=== PATIENT | male | born 1950 | race Caucasian/White ===

== ENCOUNTER 2019-06-14 07:58 | Inpatient (IN) | payer MEDICARE, MEDICAID ==
[~2019-06-14] VITALS: Ht 170.2 cm; Wt 56.7 kg
--- NOTE | 2019-06-14 08:15 | NUR ---
PT RUPERTO, FROM [facility], "C/O MID BACK BOIL". PT AAOX4, BREATHING EVEN AND UNLABORED W/ NO ACUTE DISTRESS NOTED. IV LINE ESTABLISHED LAC 20G. BLOOD COLLECTED AND SENT TO LAB. PT CONNECTED TO THE MONITOR AND POX
[2019-06-14] MEDS ORDERED: ACETAMINOPHEN ES 500 MG TABLET ONE (08:29)
[2019-06-14] MEDS ORDERED: ACETAMINOPHEN ES 500 MG TABLET PO ONE (08:30)
[2019-06-14] MEDS ORDERED: IV NS 0.9% 1,000 ML BAG IV ONE (08:30)
[2019-06-14 08:37] LABS: BASOPHILS # (AUTO) 0.1 /CMM (0.0-0.2); BASOPHILS % (AUTO) 0.3 % (0.0-2.0); EOSINOPHILS % (AUTO) 0.1 % (0.0-6.0); HEMATOCRIT 31 % (39-51); HEMOGLOBIN 10.6 g/dL (13.5-17.5); LYMPHOCYTES # (AUTO) 1.1 /CMM (0.8-4.8); LYMPHOCYTES % (AUTO) 6.5 % (20.0-44.0); MEAN CORPUSCULAR HGB CONC 34 g/dl (31.0-36.0); MEAN CORPUSCULAR VOLUME 96 fL (80-96); NEUTROPHILS # (AUTO) 14.2 /CMM (1.8-8.9); NEUTROPHILS % (AUTO) 87.1 % (43.0-81.0); PLATELET COUNT (AUTO) 368 /CMM (150-450); RED BLOOD CELL COUNT(AUTO) 3.27 MIL/uL (4.5-6.0); WHITE BLOOD COUNT (AUTO) 16.3 K/uL (4.3-11.0)
[2019-06-14 08:40] LABS: CALCIUM, SERUM 9.4 mg/dL (8.5-10.1); CARBON DIOXIDE 24 mmol/L (21-32); CHLORIDE 108 mmol/L (98-107); CREATININE 3.2 mg/dL (0.6-1.3); GLUCOSE 157 mg/dL (74-106); POTASSIUM 3.5 mmol/L (3.5-5.1); SODIUM SERUM 145 mmol/L (136-145); UREA NITROGEN, BLOOD 57 mg/dL (7-18)
[2019-06-14 08:54] LABS: ALANINE AMINOTRANSFERASE 17 U/L (12-78); ALBUMIN 3.6 g/dL (3.4-5.0); ALKALINE PHOSPHATASE 87 U/L (46-116); ASPARTATE AMINOTRANSFERASE 17 U/L (15-37); BILIRUBIN,DIRECT 0.2 mg/dL (0.0-0.2); BILIRUBIN,TOTAL 0.6 mg/dL (0.2-1.0); TOTAL PROTEIN, SERUM 8.1 g/dL (6.4-8.2)
[2019-06-14] MEDS ORDERED: MORPHINE SULFATE INJ 4 MG/ML DISP.SYRIN ONE (09:10)
[2019-06-14] MEDS ORDERED: ONDANSETRON HCL/PF 4 MG/2 ML VIAL ONE (09:10)
[2019-06-14 09:19] LABS: APPEARANCE,URINE CLOUDY (CLEAR); BILIRUBIN,URINE MODERATE (NEGATIVE); BLOOD, URINE Large Ery/uL (NEGATIVE); COLOR,URINE RED (YELLOW); KETONES,URINE Trace (NEGATIVE); LEUKOCYTE ESTERASE ,URINE Negative (NEGATIVE); NITRITE, URINE Positive (NEGATIVE); PH,URINE 8.5 (5.0-8.0); PROTEIN,URINE >=300 mg/dl (NEGATIVE); UGLUCOSE 250 MG/DL mg/dL (NEGATIVE); UROBILINOGEN,URINE 0.2 EU/dL (0.2)
[2019-06-14 09:20] LABS: BACTERIA,URINE Few /HPF (None Seen); RBC,URINE TOO NUMEROUS TO COUN /HPF (0-2); SQUAMOUS EPITHELIAL CELL,UR None Seen /HPF (None Seen)
[2019-06-14] MEDS ORDERED: MORPHINE SULFATE INJ 2 MG/ML DISP.SYRIN IV ONE (09:30)
[2019-06-14] MEDS ORDERED: ONDANSETRON HCL/PF 4 MG/2 ML VIAL IVP ONE (09:30)
--- NOTE | 2019-06-14 09:37 | NUR ---
RECIEVED BED FROM NURSING LIBRARY MEDIA ASSISTANT, ROOM 110.
--- NOTE | 2019-06-14 09:56 | NUR ---
[facility] PAGED. WAITING FOR CALL BACK.
[2019-06-14] MEDS ORDERED: LEVOFLOXACIN 750 MG /D5W 150ML 150 ML IV ONE (10:00)
--- NOTE | 2019-06-14 10:05 | NUR ---
MD TO MD IN PROGRESS.
--- NOTE | 2019-06-14 10:27 | NUR ---
REPORT GIVEN TO NILSA HUITRON FOR ANTONIO.
--- NOTE | 2019-06-14 11:02 | NUR ---
CALLED DR. FERRER, VOICEMAIL LEFT, WAITING FOR CALL BACK.
--- NOTE | 2019-06-14 11:40 | NUR ---
TELE/RN NOTES RECEIVED PATIENT FROM ER. PATIENT WAS ACCOMPANIED BY ER NURSE. PATIENT WAS HELPED TRANSFER FROM [facility] TO THE BED. INITIAL ASSESSMENT WAS DONE. PATIENT ALERT AND ORIENTED X3. NO ACUTE DISTRESS AT THIS TIME. RESPIRATION EVEN AND UNLABORED. SKIN IS DRY WARM TO TOUCH. PATIENT NOTED WITH MIDBACK BOIL. PHOTO WAS TAKEN AND WAS PLACED IN THE CHART. PATIENT ALSO HAVE LEFT AC IV ACCESS #20G. INTACT AND PATENT. FLUSHING WELL. NO S/S OF INFECTION OR INFILTRATION. ALL NEEDS ANTICIPATED. KEPT CLEAN AND DRY. CALL LIGHT WITHIN REACHED. BED LOCKED AND IN LOWEST POSITION. WILL CONTINUE TO MONITOR CLOSELY.
[2019-06-14 12:00] VITALS: BP 126/79
[2019-06-14] MEDS ORDERED: MEROPENEM 500 MG in IV NS 0.9% 50 ML IV ONE (12:00)
[2019-06-14] MEDS ORDERED: ACETAMINOPHEN 325 MG TABLET PO PRN (12:00)
[2019-06-14] MEDS ORDERED: MAG HYDROX/AL HYDROX/SIMETH 30 ML UDC PO PRN (12:00)
[2019-06-14] MEDS ORDERED: ZOLPIDEM TARTRATE 5 MG TABLET PO PRN (12:00)
[2019-06-14] MEDS ORDERED: ONDANSETRON HCL/PF 4 MG/2 ML VIAL IVP PRN (12:00)
[2019-06-14] MEDS ORDERED: Z GUARD REMEDY 2 OZ OINT TP PRN (12:00)
[2019-06-14] MEDS ORDERED: MAGNESIUM HYDROXIDE 30 ML UDC PO PRN (12:00)
[2019-06-14] MEDS: IV NS 0.9% 1,000 ML IV PRN ×2 (12:04→23:54)
[2019-06-14] MEDS ORDERED: CYAN-51 PO (12:25)
[2019-06-14] MEDS ORDERED: BISA10SU61 RC (12:25)
[2019-06-14] MEDS ORDERED: PANT40TA2 PO (12:25)
[2019-06-14] MEDS ORDERED: TYL2T PO (12:25)
[2019-06-14] MEDS ORDERED: NA P133E RC (12:25)
[2019-06-14] MEDS ORDERED: DOCU-141 PO (12:25)
[2019-06-14] MEDS ORDERED: MAGN400O6 PO (12:25)
[2019-06-14] MEDS ORDERED: FOLI1TAB16 PO (12:25)
[2019-06-14] MEDS ORDERED: NUT.237L67 PO (12:25)
[2019-06-14 12:59] LABS: CREATININE, URINE 73.9 MG/DL (30.0-125.0); URINE TOTAL PROTEIN 285.8 mg/dL (0-11.9)
[2019-06-14] MEDS: HYDROCODONE/APAP 5/325MG 1 EACH TABLET PO PRN ×2 (15:40→21:49)
[2019-06-14 16:00] VITALS: BP_SYST 128; BP_DIAS 73; BP_DIAS 79
--- NOTE | 2019-06-14 19:16 | NUR ---
TELE/RN CLOSING NOTES PATIENT CONTINUES TO REMAIN IN STABLE CONDITION THROUGHOUT THE SHIFT. PROVIDED COMFORT AND SAFETY. PATIENT HAVE LEFT AC IV ACCESS #20G. INTACT AND PATENT. FLUSHING WELL WITH IVF RUNNING. NO S/S OF INFECTION OR INFILTRATION. ALL NEEDS ANTICIPATED. KEPT CLEAN AND DRY. CALL LIGHT WITHIN REACHED. BED LOCKED AND IN LOWEST POSITION. WILL CONTINUE TO MONITOR CLOSELY. ENDORSED TO PM NURSE FOR ANTONIO.
[2019-06-14 20:00] VITALS: BP 102/68
[2019-06-15] VITALS: BP 113/78
[2019-06-15] MEDS: MEROPENEM 500 MG in IV NS 0.9% 100 ML IV SCH ×3 (00:05→23:11)
[2019-06-15 04:00] VITALS: BP 98/66
[2019-06-15 06:44] LABS: BASOPHILS % (AUTO) 0.1 % (0.0-2.0); HEMATOCRIT 27 % (39-51); HEMOGLOBIN 8.7 g/dL (13.5-17.5); LYMPHOCYTES # (AUTO) 0.7 /CMM (0.8-4.8); LYMPHOCYTES % (AUTO) 5.9 % (20.0-44.0); MEAN CORPUSCULAR HGB CONC 33 g/dl (31.0-36.0); MEAN CORPUSCULAR VOLUME 97 fL (80-96); MONOCYTES # (AUTO) 0.6 /CMM (0.1-1.30); NEUTROPHILS # (AUTO) 10.8 /CMM (1.8-8.9); PLATELET COUNT (AUTO) 242 /CMM (150-450); RED BLOOD CELL COUNT(AUTO) 2.75 MIL/uL (4.5-6.0); WHITE BLOOD COUNT (AUTO) 12.2 K/uL (4.3-11.0)
[2019-06-15 06:54] LABS: ALBUMIN 2.4 g/dL (3.4-5.0); BILIRUBIN,TOTAL 0.4 mg/dL (0.2-1.0); CALCIUM, SERUM 8.3 mg/dL (8.5-10.1); CREATININE 3.6 mg/dL (0.6-1.3); PHOSPHORUS 3.6 mg/dL (2.5-4.9); POTASSIUM 4.2 mmol/L (3.5-5.1); TOTAL PROTEIN, SERUM 6.2 g/dL (6.4-8.2)
[2019-06-15 06:57] LABS: THYROID STIMULATING HORMONE 0.452 uIU/mL (0.358-3.74)
[2019-06-15 07:06] LABS: MAGNESIUM 1.2 mg/dL (1.8-2.4)
--- NOTE | 2019-06-15 07:10 | NUR ---
RN NOTES ALERT AND ORIENTED. NO SIGNIFICANT CHANGE OF CONDITION. FOR DISCHARGE IF ABLE TO WALK WITHOUT SYMPTOMS. KEPT CLEAN AND DRY. WILL ENDORSE TO NEXT SHIFT FOR CONTINUITY OF CARE. Addendum: 06/15/19 at 2926 by BEE LLANES RN PLEASE DISREGARD ERROR
--- NOTE | 2019-06-15 07:27 | NUR ---
RN NOTES NO SIGNIFICANT CHANGE OF CONDITION. LAB CALLED ([facility]) WITH CRITICAL LOW MAGNESIUM 1.2. ENDORSED TO NEXT SHIFT FOR CONTINUITY OF CARE.
[2019-06-15 07:59] LABS: BAND % (MANUAL) 5 % (0.0-5.0); LYMPHOCYTES % (MANUAL) 9 % (16-48); MONOCYTES % (MANUAL) 13 % (0-11.0); NEUTROPHILS % (MANUAL) 73 (42-76)
[2019-06-15 08:00] VITALS: BP 99/53
[2019-06-15] MEDS ORDERED: Magnesium 1GM/D5W 100ML PREMIX PIGGYBACK IV SCH (09:00)
[2019-06-15] MEDS: Magnesium 1GM/D5W 100ML PREMIX 100 ML IV SCH ×4 (09:39→13:17)
[2019-06-15] MEDS ORDERED: NA PHOS,M-B/NA PHOS,DI-BA 1 EA ENEMA RC PRN ×2 (10:30→16:30)
[2019-06-15] MEDS ORDERED: BISACODYL SUPP (10 MG) 10 MG/SUPP.RECT SUPP.RECT RC PRN (10:30)
--- NOTE | 2019-06-15 10:55 | NUR ---
RN NOTE PT STABLE, PT WAS COUGHING AFTER SIP OF WATER, FOOD WITHHELD, NPO FOR NOW, SWALLOW EVAL ORDERED. ALSO PT CO CONSTIPATION, MAGNESIUM LEVEL REPORTED AND GOT ORDER FOR [address] ELIZALDE CONTACTED AND OBTAINED ORDER FOR DULCOLAX AND ENEMA, REPORT GIVEN TO EMILIANO HUITRON FOR ANTONIO.
--- NOTE | 2019-06-15 11:00 | NUR ---
RN NOTE REMINDED DR ELIZALDE TO REVIEW HOME MEDS HE SAID HE WILL DO.
[2019-06-15 12:00] VITALS: BP 135/79
--- NOTE | 2019-06-15 12:49 | NUR ---
CALLED AND LEFT A MESSAGE FOR DR. AHN FOR FOLLOW UP UROLOGY CONSULT.
[2019-06-15 16:00] VITALS: BP 108/69
[2019-06-15] MEDS: NEPRO VAN 237 ML CAN PO SCH (17:00)
[2019-06-15] MEDS: DOCUSATE SODIUM 100 MG CAPSULE PO SCH (17:04)
[2019-06-15] MEDS: FOLIC ACID 1 MG TABLET PO SCH (17:04)
[2019-06-15] MEDS: CYANOCOBALAMIN 500 MCG TABLET PO SCH (17:05)
[2019-06-15] MEDS: HYDROCODONE/APAP 5/325MG 1 EACH TABLET PO PRN (17:15)
--- NOTE | 2019-06-15 17:50 | NUR ---
MICROBIOLOGY CALLED TO INFORM THAT PT IS POSITIVE FOR MRSA OF RIGHT NARES. CALLED [facility] FOR ISOLATION CART. STILL PENDING ISOLATION CART.
--- NOTE | 2019-06-15 19:23 | NUR ---
RN CLOSING NOTES PT RESTING IN BED. REPORT GIVEN TO DRILL SERGEANT RN FOR ANTONIO. BED IS LOCKED AND IN LOWEST POSITION WITH CALL LIGHT IN REACH. PT ON MONITOR CURRENTLY SR. CHEST RISE EQUAL BILATERALLY WILL ENDORSE ANTONIO TO DRILL SERGEANT RN.
[2019-06-15 20:00] VITALS: BP 96/65
[2019-06-15] MEDS: IV NS 0.9% 1,000 ML IV PRN (20:39)
[2019-06-15] MEDS: MUPIROCIN OINT 2% 22 GM TUBE SCH (20:40)
--- NOTE | 2019-06-15 22:30 | NUR ---
SENIOR PROJECT ACCOUNTANT NOTE MIDSHIFT REPORT FROM BEE HUITRON. RECEIVED PT IN STABLE CONDITION A/O X1-2, CURRENTLY RESTING IN BED. NO SIGNS OF SOB OR DISTRESS, NO INDICATIONS OF PAIN OR N/V. TELE MONITOR : SR 92. IV IN L AC IN PLACE WITH IVF INFUSING, TOLERATING WELL. ALL CURRENT NEEDS ATTENDED TO. BED LOW, LOCKED, UPPER RAILS UP, AND CALL LIGHT WITHIN REACH. WILL CONT. TO MONITOR.
[2019-06-16] VITALS (7 sets, daily range): BP systolic 105–146; BP diastolic 69–90
[2019-06-16] MEDS: IV NS 0.9% 1,000 ML IV PRN (05:17)
--- NOTE | 2019-06-16 06:14 | NUR ---
RN ORTHOPAEDICS NOTE PT IN STABLE CONDITION A/O X1-2, CURRENTLY RESTING IN BED. NO SIGNS OF SOB OR DISTRESS, NO INDICATIONS OF PAIN OR N/V. TELE MONITOR : SR 89. IV IN L AC IN PLACE WITH IVF INFUSING, TOLERATING WELL. HIDALGO IN PLACE WITH OUTPUT OF 750 ML OF CLEAR YELLOW URINE. ALL CURRENT NEEDS ATTENDED TO. PT REPOSITIONED PER PROTOCOL. BED LOW, LOCKED, UPPER RAILS UP, AND CALL LIGHT WITHIN REACH. WILL CONT. TO MONITOR AND ENDORSE TO NEXT SHIFT FOR ANTONIO.
[2019-06-16 06:42] LABS: BASOPHILS % (AUTO) 0.1 % (0.0-2.0); EOSINOPHILS % (AUTO) 0.7 % (0.0-6.0); HEMATOCRIT 24 % (39-51); LYMPHOCYTES # (AUTO) 0.7 /CMM (0.8-4.8); LYMPHOCYTES % (AUTO) 5.4 % (20.0-44.0); MEAN CORPUSCULAR HGB CONC 33 g/dl (31.0-36.0); MEAN CORPUSCULAR VOLUME 97 fL (80-96); MONOCYTES # (AUTO) 0.3 /CMM (0.1-1.30); MONOCYTES % (AUTO) 2.2 % (2.0-12.0); NEUTROPHILS # (AUTO) 11.9 /CMM (1.8-8.9); NEUTROPHILS % (AUTO) 91.6 % (43.0-81.0); PLATELET COUNT (AUTO) 225 /CMM (150-450); RED BLOOD CELL COUNT(AUTO) 2.48 MIL/uL (4.5-6.0)
[2019-06-16 07:02] LABS: CALCIUM, SERUM 8.5 mg/dL (8.5-10.1); CREATININE 2.9 mg/dL (0.6-1.3); MAGNESIUM 2.5 mg/dL (1.8-2.4); PHOSPHORUS 3.4 mg/dL (2.5-4.9); POTASSIUM 3.5 mmol/L (3.5-5.1)
--- NOTE | 2019-06-16 07:30 | NUR ---
WOODYARD OPERATOR OPENING NOTE RECEIVED REPORT AT BEDSIDE. PT AWAKE, A/O X1-2. NO SIGNS OF RESPIRATORY/CARDIA DISTRESS OR SOB, NO COMPLAIN OF PAIN AT THIS TIME. TELE MONITOR : ST 108. IV IN L AC 20G NS @ 75 ML/HR. IV RH 22G INTACT, PATENT, FLUSHED WELL. BED LOW, LOCKED, UPPER RAILS UPX3, AND CALL LIGHT WITHIN REACH. BED ALARM ON. WILL CONT. TO MONITOR.
--- NOTE | 2019-06-16 09:06 | NUR ---
SPORTS FITNESS AND WELLNESS DIRECTOR NOTE RECEIVED CALL FROM LAB. BLOOD CULTURE RESULT: PATIENT HAS GRAM (-) RODS IN 2 DIFFERENT BOTTLES. MD WILL BE NOTIFIED.
[2019-06-16] MEDS: BISACODYL SUPP (10 MG) 10 MG/SUPP.RECT SUPP.RECT RC SCH (09:23)
[2019-06-16] MEDS: NEPRO VAN 237 ML CAN PO SCH ×2 (09:23→18:35)
[2019-06-16] MEDS: DOCUSATE SODIUM 100 MG CAPSULE PO SCH (09:23)
[2019-06-16] MEDS: FOLIC ACID 1 MG TABLET PO SCH (09:23)
[2019-06-16] MEDS: MUPIROCIN OINT 2% 22 GM TUBE SCH ×2 (09:24→20:42)
--- NOTE | 2019-06-16 10:12 | NUR ---
PROFESSOR OF POULTRY SCIENCE NOTE DR WISE AT BEDSIDE, MADE AWARE ABOUT GRAM (-) RODS IN BLOOD CULTURE. HE SAID SINCE PATIENT IS GETTING MERREM NO OTHER ANTIBIOTIC IS NEEDED.
--- NOTE | 2019-06-16 10:43 | NUR ---
SQL SERVER ARCHITECT NOTE JUST CHECKED THE MICROBIOLOGY AND NOTICED PATIENT WAS REPORTED MRSA (+) RIGHT NARES SINCE 06/14/2019 BUT HE IS NOT ON ISOLATION. [place]GO NURSE AND DR. WISE MADE AWARE, [place] ORDERED. ORDER CARRIED OUT. PATIENT ON CONTACT ISOLATION.
[2019-06-16] MEDS ORDERED: MUPIROCIN OINT 2% 22 GM TUBE SCH (11:00)
[2019-06-16] MEDS: MEROPENEM 500 MG in IV NS 0.9% 100 ML IV SCH (12:11)
[2019-06-16 15:07] LABS: PTH, INTACT 63 pg/mL (15-65)
[2019-06-16] MEDS: CYANOCOBALAMIN 500 MCG TABLET PO SCH (18:35)
--- NOTE | 2019-06-16 19:00 | NUR ---
golf ball trimmer notes Received Pt from morning nurse. Pt is sitting in bed comfortably watching TV. Pt is alert and oriented X 1-2. Respiration is normal. No SOB. No nausea or vomiting. Pt denies any pain or discomfort at this time. IV sites at LAC# 20 is clean, intact and patent and infusing well NS @ 75 ml/hr. Tele monitor showed Sinus tachy HR 110. Murphy cath is intact, patent and draining clear yellow urine. Contact precautions for MRSA is maintained all the time. Instructed to call for assistance. Safety precautions is maintained. Bed at low position, brakes locked, side rails upX3 and call light is within reach. Will continue to monitor.
--- NOTE | 2019-06-16 19:29 | NUR ---
ASSOCIATE PROFESSOR OF THEATRE CLOSING NOTES PT RESTING IN BED COMFORTABLY. ON TELE MONITOR ST WITH HR 110. NO SIGN OF RESPIRATORY/CARDIAC DISTRESS OR SOB AT THIS TIME. RESPIRATION EVEN AND UNLABORED. NO SIGNIFICANT CHANGE DURING THE SHIFT. BED LOW AND LOCKED, SIDE RAILS UPX3, BED ALARM ON, CALL LIGHT IN REACH. ENDORSED ANTONIO TO BUTTON MACHINE OPERATOR RN.
[2019-06-17] VITALS: BP 138/91
[2019-06-17] MEDS ORDERED: MEROPENEM 500 MG VIAL IV ONE (00:28)
[2019-06-17] MEDS: MEROPENEM 500 MG in IV NS 0.9% 100 ML IV SCH ×2 (00:30→11:00)
[2019-06-17 04:00] VITALS: BP 136/79
--- NOTE | 2019-06-17 07:00 | NUR ---
loan and credit manager closing notes Pt is resting in bed comfortably. Respiration is normal. No SOB. No nausea or vomiting. No S/S of distress noted. IV sites at LAC is clean, intact and infusing well NS at 75 ml/hr. VS is stable. Afebrile. Tele monitor showed sinus tachy HR 103. Murphy cath is intact, patent and draining clear yellow urine 1150 ml. Routine meds were given as ordered. Skin care provided. Kept Pt clean, dry, warm and comfortable. Instructed to call. Bed at low position, brakes locked, side rails upx3, bed alarm is on, call light is within reach. Will endorse to morning nurse for ANTONIO.
--- NOTE | 2019-06-17 07:14 | NUR ---
RN OPENING NOTE PT WAS RECEIVED IN BED AT LOWEST AND LOCKED POSITION WITH SIDE RAILS UP X3, A/O X1-2 CONFUSED BREATHING EVEN AND UNLABORED ON RA, NO S/S OF ANY DISTRESS OR PAIN AT THIS TIME, IV IS PATENT AND INTACT WITH IVF RUNNING, HIDALGO IN PLACE AND DRAINING, SAFETY PRECAUTIONS IN PLACE, CALL LIGHT IN REACH, WILL MONITOR ACCORDINGLY Addendum: 06/17/19 at 0740 by PRIYANKA MEZA RN ALSO ON TELE MONITOR SHOWING SINUS TACH 100's
[2019-06-17] MEDS: DOCUSATE SODIUM 100 MG CAPSULE PO SCH (08:09)
[2019-06-17] MEDS: BISACODYL SUPP (10 MG) 10 MG/SUPP.RECT SUPP.RECT RC SCH (08:09)
[2019-06-17] MEDS: FOLIC ACID 1 MG TABLET PO SCH (08:09)
[2019-06-17] MEDS: NEPRO VAN 237 ML CAN PO SCH ×2 (08:10→16:03)
[2019-06-17] MEDS: MUPIROCIN OINT 2% 22 GM TUBE SCH ×2 (08:11→21:16)
[2019-06-17 08:44] VITALS: BP 136/87
[2019-06-17] MEDS: IV NS 0.9% 1,000 ML IV PRN (11:01)
[2019-06-17 12:49] VITALS: BP 136/87
[2019-06-17 16:31] VITALS: BP 141/86
[2019-06-17] MEDS: CYANOCOBALAMIN 500 MCG TABLET PO SCH (17:36)
--- NOTE | 2019-06-17 18:24 | NUR ---
RN CLOSING NOTE PT IN BED AT LOWEST AND LOCKED POSITION WITH SIDE RAILS UP X3, A/O X1-2 CONFUSED BREATHING EVEN AND UNLABORED ON RA WITH NO DISTRESS OR COMPLAINTS AT THIS TIME, IV IS PATENT AND INTACT WITH IVF RUNNING, HIDALGO IN PLACE AND DRAINING WITH 850 ML OUT, SAFETY PRECAUTIONS IN PLACE, CALL LIGHT IN REACH, ALL NEEDS ATTENDED TO, WILL ENDORSE TO NIGHT RN FOR ANTONIO. Addendum: 06/17/19 at 1828 by PRIYANKA MEZA RN ON TELE MONITOR SHOWING SINUS TACH 104
--- NOTE | 2019-06-17 19:30 | NUR ---
RE EXAMINER OPENING NOTE RECEIVED PATIENT IN BED WITH NO DISTRESS OR DISCOMFORT. PATIENT IS A/O X1 WITH HX OF DEMENTIA. PATIENT IS ON ROOM AIR WITH NO SIGNS OF SOB. NO COMPLAINTS OF ANY PAIN AT THE MOMENT. PATIENT HAS A LFA #20 WITH NS RUNNING AT 75ML/HR. PATIENT HAS MILD TO MODERATE WEAKNESS IN THE EXTREMITIES AND HAD BRP WITH ASSISTANCE. HAS HIDALGO PATENT WITH NO SIGNS OF OBSTRUCTIONS. ALL SAFETY PRECAUTIONS APPLIED, CALL LIGHT WITHIN REACH, BED LOCKED IN LOW POSITION, BED ALARM ON, AND SIDE RAILS UP X2. WILL CONTINUE TO MONITOR PATIENT.
[2019-06-17 20:00] VITALS: BP_SYST 151; BP_DIAS 71; BP_DIAS 75
[2019-06-18] VITALS: BP 129/69
[2019-06-18 04:00] VITALS: BP 115/71
--- NOTE | 2019-06-18 07:26 | NUR ---
CROSSBOW MAKER OPENING NOTE PATIENT IN BED WITH NO SIGN OF ANY DISTRESS. ON ROOM AIR WITH NO SIGNS OF SOB. ALL SAFETY PRECAUTIONS APPLIED. ENDORSED PATIENT TO MORNING NURSE.
--- NOTE | 2019-06-18 07:30 | NUR ---
CHIEF POWER DISPATCHER AM NOTES RECEIVED PATIENT IN BED, AAO X N, ON ROOM AIR, NO DISTRESS, NO SOB, RESPIRATION UNLABORED, SINUS RHYTHM HR 95 ON TELE MONITOR. DENIES CHEST PAIN OR DISCOMFORT, LEFT HAND #20 WITH NS RUNNING AT 75ML/HR. SITE CLEAR. MILD TO MODERATE WEAKNESS IN THE EXTREMITIES AND HAD BRP WITH 2 PERSON ASSIST. HIDALGO PATENT DRAINING YELLOW COLORED URINE, ADEQUATE AMOUNT. SAFETY PRECAUTIONS IN PLACE. CALL LIGHT WITHIN REACH, BED LOCKED IN LOW POSITION, BED ALARM ON, AND SIDE RAILS UP X2. WILL CONTINUE TO MONITOR PATIENT.
[2019-06-18 08:00] VITALS: BP 134/83
[2019-06-18] MEDS: BISACODYL SUPP (10 MG) 10 MG/SUPP.RECT SUPP.RECT RC SCH (08:31)
[2019-06-18] MEDS: DOCUSATE SODIUM 100 MG CAPSULE PO SCH (08:31)
[2019-06-18] MEDS: FOLIC ACID 1 MG TABLET PO SCH (08:31)
[2019-06-18] MEDS: NEPRO VAN 237 ML CAN PO SCH ×2 (08:33→17:37)
[2019-06-18] MEDS: MUPIROCIN OINT 2% 22 GM TUBE SCH ×2 (08:33→21:36)
[2019-06-18 09:09] LABS: *SPE A/G RATIO 0.9 (0.7-1.7); *SPE ALBUMIN 2.7 g/dL (2.9-4.4); *SPE ALPHA-1-GLOBULIN 0.4 g/dL (0.0-0.4); *SPE ALPHA-2-GLOBULIN 0.8 g/dL (0.4-1.0); *SPE BETA GLOBULIN 0.7 g/dL (0.7-1.3); *SPE GLOBULIN, TOTAL 2.9 g/dL (2.2-3.9); *SPE M-SPIKE Not Observed g/dL (Not Observed)
--- NOTE | 2019-06-18 09:30 | NUR ---
NUTRITION SERVICES WORKER NOTES DUE MEDS GIVEN
[2019-06-18] MEDS: IV NS 0.9% 1,000 ML IV PRN (10:30)
[2019-06-18] MEDS ORDERED: LIDOCAINE 1%-EPI 1:100,000 20 ML VIAL TP ONE (10:30)
[2019-06-18 12:00] VITALS: BP 121/83
[2019-06-18] MEDS: MEROPENEM 500 MG in IV NS 0.9% 100 ML IV SCH ×3 (12:35)
[2019-06-18 16:00] VITALS: BP 144/76
[2019-06-18] MEDS: CYANOCOBALAMIN 500 MCG TABLET PO SCH (17:28)
--- NOTE | 2019-06-18 18:37 | NUR ---
SUPERVISOR PASTE PLANT CLOSING NOTES PATIENT IN BED RESTING, AAO X N, ON ROOM AIR, NO DISTRESS, NO SOB, RESPIRATION UNLABORED, SINUS RHYTHM HR 99 ON TELE MONITOR. DENIES CHEST PAIN OR DISCOMFORT, LEFT HAND #20 WITH NS RUNNING AT 75ML/HR. SITE CLEAR. MILD TO MODERATE WEAKNESS IN THE EXTREMITIES AND HAD BRP WITH 2 PERSON ASSIST. HIDALGO PATENT DRAINING YELLOW COLORED URINE, ADEQUATE AMOUNT, 1200ML OUTPUT. SAFETY PRECAUTIONS IN PLACE. CALL LIGHT WITHIN REACH, BED LOCKED IN LOW POSITION, BED ALARM ON, AND SIDE RAILS UP X2. ALL NEEDS MET. TURNED AND REPOSITIONED. PM CARE DONE. WILL ENDORSE TO NEXT SHIFT FOR ANTONIO.
[2019-06-18 20:00] VITALS: BP 148/92
--- NOTE | 2019-06-18 20:00 | NUR ---
RESIDENT INTERN NOTE PT IN BED AWAKE, NO DISTRESS OR DISCOMFORT NOTED. DENIES PAIN. A/O X 2 CONFUSED. ON TELE SR 94. IVF NS 75 ML/HR INFUSING WELL, NO S/S OF INFILTRATION NOTED. KEPT HIM DRY AND CLEAN. ALL NEEDS ATTENDED. VSS. CONTINUE TO MONITOR HIM.
--- NOTE | 2019-06-18 23:24 | NUR ---
EYEWEAR MANUFACTURING TECH NOTE PT ENDORSED TO NURSE VICK FOR CONTINUE TO CARE.
[2019-06-19] VITALS: BP 142/88
[2019-06-19] MEDS: MEROPENEM 500 MG in IV NS 0.9% 100 ML IV SCH ×3 (00:14→23:20)
[2019-06-19 04:00] VITALS: BP 152/96
[2019-06-19 06:21] LABS: BASOPHILS % (AUTO) 0.4 % (0.0-2.0); EOSINOPHILS % (AUTO) 7.6 % (0.0-6.0); HEMATOCRIT 25 % (39-51); HEMOGLOBIN 8.5 g/dL (13.5-17.5); LYMPHOCYTES # (AUTO) 1.1 /CMM (0.8-4.8); LYMPHOCYTES % (AUTO) 12.6 % (20.0-44.0); MEAN CORPUSCULAR HGB CONC 33 g/dl (31.0-36.0); MEAN CORPUSCULAR VOLUME 96 fL (80-96); MONOCYTES # (AUTO) 1.1 /CMM (0.1-1.30); NEUTROPHILS % (AUTO) 67.4 % (43.0-81.0); PLATELET COUNT (AUTO) 222 /CMM (150-450); RED BLOOD CELL COUNT(AUTO) 2.65 MIL/uL (4.5-6.0)
[2019-06-19 06:39] LABS: CALCIUM, SERUM 8.1 mg/dL (8.5-10.1); CREATININE 1.9 mg/dL (0.6-1.3); MAGNESIUM 1.8 mg/dL (1.8-2.4); PHOSPHORUS 2.8 mg/dL (2.5-4.9); POTASSIUM 3.2 mmol/L (3.5-5.1)
--- NOTE | 2019-06-19 07:00 | NUR ---
rn opening notes received patient in stable condition. not in any form of distress. no sob. denied pain or discomfort at this time. iv access intact and patent. bed in low/locked posiiton, siderails upx2, call light in reach. will continue to moniotr accordingly
[2019-06-19 08:00] VITALS: BP 146/98
[2019-06-19 08:21] LABS: FREE PSA 0.16 ng/mL (0.00-45); PROSTATE SPECIFIC ANTIGEN SCR 6.46 ng/mL (0.00-4.00)
[2019-06-19] MEDS: BISACODYL SUPP (10 MG) 10 MG/SUPP.RECT SUPP.RECT RC SCH (09:00)
[2019-06-19] MEDS: NEPRO VAN 237 ML CAN PO SCH ×2 (09:00→17:17)
[2019-06-19 09:20] LABS: BAND % (MANUAL) 1 % (0.0-5.0); EOSINOPHILS % (MANUAL) 6 % (0-4); LYMPHOCYTES % (MANUAL) 11 % (16-48); MONOCYTES % (MANUAL) 8 % (0-11.0); NEUTROPHILS % (MANUAL) 74 (42-76)
[2019-06-19] MEDS: DOCUSATE SODIUM 100 MG CAPSULE PO SCH (09:42)
[2019-06-19] MEDS: FOLIC ACID 1 MG TABLET PO SCH (09:42)
[2019-06-19] MEDS: MUPIROCIN OINT 2% 22 GM TUBE SCH ×2 (09:44→20:23)
[2019-06-19] MEDS ORDERED: POTASSIUM CHLORIDE 10 MEQ TABLET.SA PO ONE (11:30)
[2019-06-19] MEDS ORDERED: MUPI22OI7 (13:35)
[2019-06-19] MEDS ORDERED: TAMS-12 PO (13:35)
[2019-06-19] MEDS ORDERED: MERO500V3 IV (13:35)
--- NOTE | 2019-06-19 13:42 | NUR ---
ANNETTE MEADE NOTIFIED REGARDING DISCHARGE ORDER.
--- NOTE | 2019-06-19 13:43 | NUR ---
AWAITS CM INSTRUCTION PER SNF AVAILABILITY.
[2019-06-19 16:00] VITALS: BP_SYST 136; BP_SYST 154; BP_DIAS 69; BP_DIAS 99
[2019-06-19] MEDS: CYANOCOBALAMIN 500 MCG TABLET PO SCH (17:14)
--- NOTE | 2019-06-19 19:05 | NUR ---
MS RN OPENING NOTES RECEIVED PATIENT RESTING IN BED, WATCHING TV. ALERT, ORIENTED X 2-3. BREATHING EVEN AND UNLABORED. NOT IN ANY DISTRESS. NO COMPLAINTS AT THIS TIME. ISOLATION PRECAUTION IN PLACE. SAFETY MEASURES IN PLACE. CALL LIGHT WITHIN EASY REACH. BED IN LOWEST, LOCKED POSITION. WILL CONTINUE TO MONITOR ACCORDINGLY
--- NOTE | 2019-06-19 19:36 | NUR ---
RN CLOSING NOTES PATINE IN STABLE CONDITION. ALL NEEDS ATTENDED AND PROVIDED. ALL DUE MEDS GIVEN ORDERED. TURNED AND REPOSITIONED PATIENT EVRY 2HRS NEEDED. WOUND CARE RENDERED. BED IN LOW/LOCKED POSITION, SIDERAILS UPX2, CALL LIGHT IN REACH. ENDORSED TO NIGHT RN FOR ANTONIO.
[2019-06-19 20:00] VITALS: BP 148/92
[2019-06-19] MEDS: DOXYCYCLINE HYCLATE (100 MG) 100 MG TABLET PO SCH (20:24)
[2019-06-19] MEDS: TAMSULOSIN 0.4 MG CAP.SR.24H PO SCH (21:07)
[2019-06-20 04:00] VITALS: BP 151/87
--- NOTE | 2019-06-20 06:30 | NUR ---
MS RN CLOSING NOTES Patient still sleeping in bed, easily arousable. No significant change in condition overnight. No complaints of pain or discomfort at this time. Peripheral IV infusing at 75mL/hr. Murphy catheter in place, draining clear, yellow urine. All cares attended and anticipated. Safety measures in place; call light within reach, bed in lowest locked position. Will endorse ANTONIO to oncoming RN
[2019-06-20 06:43] LABS: BASOPHILS % (AUTO) 0.4 % (0.0-2.0); EOSINOPHILS % (AUTO) 7.8 % (0.0-6.0); HEMATOCRIT 25 % (39-51); HEMOGLOBIN 8.4 g/dL (13.5-17.5); LYMPHOCYTES # (AUTO) 1.4 /CMM (0.8-4.8); LYMPHOCYTES % (AUTO) 15.7 % (20.0-44.0); MEAN CORPUSCULAR HGB CONC 33 g/dl (31.0-36.0); MEAN CORPUSCULAR VOLUME 95 fL (80-96); NEUTROPHILS % (AUTO) 65.1 % (43.0-81.0); PLATELET COUNT (AUTO) 264 /CMM (150-450); RED BLOOD CELL COUNT(AUTO) 2.68 MIL/uL (4.5-6.0); WHITE BLOOD COUNT (AUTO) 9.2 K/uL (4.3-11.0)
[2019-06-20 07:19] LABS: BILIRUBIN,TOTAL 0.4 mg/dL (0.2-1.0); CALCIUM, SERUM 8.2 mg/dL (8.5-10.1); CREATININE 1.6 mg/dL (0.6-1.3); MAGNESIUM 1.7 mg/dL (1.8-2.4); PHOSPHORUS 2.6 mg/dL (2.5-4.9); POTASSIUM 3.7 mmol/L (3.5-5.1); TOTAL PROTEIN, SERUM 6.1 g/dL (6.4-8.2)
[2019-06-20 08:00] VITALS: BP 144/87
[2019-06-20] MEDS: BISACODYL SUPP (10 MG) 10 MG/SUPP.RECT SUPP.RECT RC SCH (09:00)
[2019-06-20] MEDS: MUPIROCIN OINT 2% 22 GM TUBE SCH ×2 (09:13→21:32)
[2019-06-20] MEDS: FOLIC ACID 1 MG TABLET PO SCH (09:13)
[2019-06-20] MEDS: NEPRO VAN 237 ML CAN PO SCH ×2 (09:13→17:23)
[2019-06-20] MEDS: DOCUSATE SODIUM 100 MG CAPSULE PO SCH (09:13)
[2019-06-20] MEDS: DOXYCYCLINE HYCLATE (100 MG) 100 MG TABLET PO SCH ×2 (09:13→21:31)
[2019-06-20] MEDS ORDERED: Magnesium 1GM/D5W 100ML PREMIX 100 ML IV SCH (10:00)
[2019-06-20] MEDS: MEROPENEM 500 MG in IV NS 0.9% 100 ML IV SCH (12:30)
--- NOTE | 2019-06-20 12:51 | NUR ---
rn note attempted to reach dr Null, pt co RUQ pain 03/07. refused pain medicine and refused lunch. awaitng call back.
--- NOTE | 2019-06-20 13:00 | NUR ---
rn note notified Dr Null about pt co RUQ pain, he said he will order himself something.
[2019-06-20 16:00] VITALS: BP 156/98
[2019-06-20] MEDS: CYANOCOBALAMIN 500 MCG TABLET PO SCH (17:20)
--- NOTE | 2019-06-20 20:46 | NUR ---
MS RN OPENING NOTES, RECEIVED PATIENT IN BED, SEEPING AT THIS TIME, BUT AROUSES EASILY TO VERBAL STIMULI, BREATHING EVEN AND UNLABORED, NO SOB/ACUTE DISTRESS NOTED AT THIS TIME, NO FACIAL GRIMACING NOTED, LEFT HAND IV ACCESS 18G, KCL 20MEQ NS INFUSING WILL AND PATIENT TOLERATED WELL, NO S/S OF INFILTRATION AT THIS TIME, ISOLATION PRECAUTION IN PLACE, SAFETY MEASURES IN PLACE, CALL LIGHT W/I REACH, BED LOCKED AND LOWEST POSITION, WILL CONTINUE TO MONITOR PATIENT CLOSELY.
[2019-06-20] MEDS: TAMSULOSIN 0.4 MG CAP.SR.24H PO SCH (21:31)
[2019-06-21] MEDS: MEROPENEM 500 MG in IV NS 0.9% 100 ML IV SCH ×2 (00:08→12:56)
[2019-06-21 04:00] VITALS: BP 150/89
[2019-06-21 06:39] LABS: CALCIUM, SERUM 7.9 mg/dL (8.5-10.1); CREATININE 1.6 mg/dL (0.6-1.3); MAGNESIUM 1.7 mg/dL (1.8-2.4)
--- NOTE | 2019-06-21 06:44 | NUR ---
RN MS NOTES, PATIENT ASLEEP AT THIS TIME, BUT EASILY AROUSES TO VERBAL STIMULI, ABLE TO VERBALIZED NEEDS, NO DISTRESS/SOB NOTED, NO SIGNIFICANT CHANGE IN CONDITION DURING THE NIGHT, WILL ENDORSE CONTINUITY OF CARE TO ONCOMING NURSE.
--- NOTE | 2019-06-21 07:50 | NUR ---
M/S RN NOTES PATIENT RESTING IN BED, NO RESPIRATORY DISTRESS, NO C/O PAIN AT THIS TIME. PATIENT'S IV ACCESS SITE INTACT AND PATENT. F/C INTACT AND DRAINING CLEAR, YELLOW URINE. PATIENT'S NEEDS ATTENDED. BED ON LOWEST LOCKED POSITION, CALL LIGHT WITHIN REACH. WILL CONTINUE TO MONITOR.
[2019-06-21 08:00] VITALS: BP 135/86
[2019-06-21] MEDS: DOCUSATE SODIUM 100 MG CAPSULE PO SCH (08:18)
[2019-06-21] MEDS: DOXYCYCLINE HYCLATE (100 MG) 100 MG TABLET PO SCH ×2 (08:18→21:19)
[2019-06-21] MEDS: FOLIC ACID 1 MG TABLET PO SCH (08:18)
[2019-06-21] MEDS: BISACODYL SUPP (10 MG) 10 MG/SUPP.RECT SUPP.RECT RC SCH (08:18)
[2019-06-21] MEDS: NEPRO VAN 237 ML CAN PO SCH ×2 (09:16→17:52)
[2019-06-21] MEDS: MUPIROCIN OINT 2% 22 GM TUBE SCH ×2 (09:16→21:28)
--- NOTE | 2019-06-21 10:15 | NUR ---
M/S RN NOTES PATIENT'S WOUND TX DONE, TOLERATED WELL.
[2019-06-21] MEDS: Magnesium 1GM/D5W 100ML PREMIX 100 ML IV SCH ×2 (10:44→11:48)
[2019-06-21 12:00] VITALS: BP 135/86
[2019-06-21 16:00] VITALS: BP 154/98
[2019-06-21] MEDS: CYANOCOBALAMIN 500 MCG TABLET PO SCH (17:52)
--- NOTE | 2019-06-21 18:20 | NUR ---
M/S RN NOTES PATIENT AWAKE IN BED, NO RESPIRATORY DISTRESS, NO C/O PAIN AT THIS TIME. SKIN WARM TO TOUCH. IV KCL 20MEQ WITH NS RUNNING AT 75ML/HR ON THE LEFT HAND, INTACT AND PATENT, NO REDNESS, NO INFILTRATION. PATIENT'S NEEDS ATTENDED. BED ON LOWEST LOCKED POSITION, CALL LIGHT WITHIN REACH. WILL ENDORSE TO ONCOMING NURSE.
[2019-06-21 20:00] VITALS: BP 112/99
--- NOTE | 2019-06-21 20:00 | NUR ---
RESTING IN BED....DENIES ANY COMPLAINTS AT THIS TIME. RESPIRATIONS EASY UNLABORED. IV INFUSING JPER ORDER WITHOUT S/SX INFTILTRATION NOTED. CALL LIGHT AVAILABLE AND WITHIN REACH. FOLE DRAINING CLEAR YELLOW URINE. ENCOURAGED TO CALL FOR NASREEN WITH OUT OF BED. STATES UNDERSTANDING
[2019-06-21] MEDS: TAMSULOSIN 0.4 MG CAP.SR.24H PO SCH (21:19)
[2019-06-22] MEDS: MEROPENEM 500 MG in IV NS 0.9% 100 ML IV SCH ×2 (00:45→12:43)
[2019-06-22 04:00] VITALS: BP 112/99
--- NOTE | 2019-06-22 07:10 | NUR ---
MS RN OPENING NOTES PT IS LYING ON BED,ALERT/ORIENTED X3.ON ROOM AIR,TOLERATING WELL.NO SOB AND ACUTE DISTRESS NOTED.HIDALGO CATHETER IS IN PLACE WITH CLEAR YELLOW COLOR URINE.PT HAS LEFT SIDE WEAKNESS AND CAN ABLE TO AMBULATE WITH 2 PERSON ASSISTANCE TO THE RESTROOM.IV LINE IS ON LEFT HAND WITH IV FLUID IS RUNNING.SITE IS CLEAN,DRY AND INTACT.NO INFILTRATION NOTED.BED IS IN LOW POSITION AND LOCKED,CALL LIGHT IS WITHIN REACH.WILL CONTINUE TO MONITOR THE PT CLOSELY.
[2019-06-22 08:00] VITALS: BP 138/87
[2019-06-22] MEDS: DOXYCYCLINE HYCLATE (100 MG) 100 MG TABLET PO SCH (08:32)
[2019-06-22] MEDS: DOCUSATE SODIUM 100 MG CAPSULE PO SCH (08:32)
[2019-06-22] MEDS: FOLIC ACID 1 MG TABLET PO SCH (08:32)
[2019-06-22] MEDS: MUPIROCIN OINT 2% 22 GM TUBE SCH (08:32)
[2019-06-22] MEDS: NEPRO VAN 237 ML CAN PO SCH ×2 (08:33→17:00)
[2019-06-22] MEDS: BISACODYL SUPP (10 MG) 10 MG/SUPP.RECT SUPP.RECT RC SCH (08:41)
[2019-06-22 16:00] VITALS: BP 148/97
--- NOTE | 2019-06-22 16:10 | NUR ---
MS RN NOTE: SPOKE TO TOMY MULLIGAN OF [facility] FOR ENDORSEMENT OF PATIENT DISCHARGE. RELAYED DISCHARGE INSTRUCTIONS AND PLAN OF CARE REGARDING PATIENT. ACKNOWLEDGED AND ACCEPTED REPORT. PATIENT INFORMED OF UPCOMING DISCHARGE WITH COMPUTER BOOKKEEPER TIME OF 5PM, PATIENT IS AWARE.
[2019-06-22] MEDS: CYANOCOBALAMIN 500 MCG TABLET PO SCH (17:05)
--- NOTE | 2019-06-22 17:25 | NUR ---
MS BIOFUELS RESEARCH SCIENTIST NOTES PT IS DISCHARGED TO [facility] VIA AMBULANCE.ALL THE DISCHARGE MEDICATION INSTRUCTIONS GIVEN TO THE PT AND EMT STAFF.PT IS CLEAN AND DRY.HIDALGO CATH IS IN PLACE FOR SACRAL PRESSURE ULCER.IV LINE ON LEFT HAND IS IN PLACE,SL PER THE REHABILITATION RN REQUEST TO CONTINUE THE IV ANTIBIOTICS.GOOD BLOOD RETURN AND NO S/S INFILTRATION NOTED.SITE IS CLEAN,DRY AND INTACT.ON ROOM AIR,TOLERATING WELL.NO COMPLICATIONS NOTED.
== END 2019-06-22 17:25 | DRG 853 ==
LOC: ER 08:02 → TELE1 09:41 → MEDSG1 06-19 10:58
PROVIDERS: ADMIT Internal Medicine; ATTEND Nurse Practitioner Acute Care
PROC: 0KBG0ZZ Excision of Left Trunk Muscle, Open Approach (ICD-10-PCS; principal; 2019-06-18)
DX: A41.51 Sepsis due to Escherichia coli [E. coli] (principal); G93.41 Metabolic encephalopathy; N17.0 Acute kidney failure with tubular necrosis; N39.0 Urinary tract infection, site not specified; I13.0 Hypertensive heart and chronic kidney disease with heart failure and stage 1 through stage 4 chronic kidney disease, or unspecified chronic kidney disease; I69.354 Hemiplegia and hemiparesis following cerebral infarction affecting left non-dominant side; N13.30 Unspecified hydronephrosis; L02.212 Cutaneous abscess of back [any part, except buttock and flank]; L03.312 Cellulitis of back [any part except buttock and flank]; D62 Acute posthemorrhagic anemia; R65.20 Severe sepsis without septic shock; R31.9 Hematuria, unspecified; D63.8 Anemia in other chronic diseases classified elsewhere; E83.42 Hypomagnesemia; F17.200 Nicotine dependence, unspecified, uncomplicated; E11.22 Type 2 diabetes mellitus with diabetic chronic kidney disease; I25.10 Atherosclerotic heart disease of native coronary artery without angina pectoris; N18.9 Chronic kidney disease, unspecified; N40.0 Benign prostatic hyperplasia without lower urinary tract symptoms; R33.9 Retention of urine, unspecified; F10.21 Alcohol dependence, in remission; Z88.1 Allergy status to other antibiotic agents; Z79.899 Other long term (current) drug therapy; F01.50 Vascular dementia, unspecified severity, without behavioral disturbance, psychotic disturbance, mood disturbance, and anxiety; L02.222 Furuncle of back [any part, except buttock and flank]; I50.9 Heart failure, unspecified; R31.0 Gross hematuria; E11.51 Type 2 diabetes mellitus with diabetic peripheral angiopathy without gangrene
CPT/HCPCS: 36415; 71045-TC; 76770-TC; 80048-TC; 80053-TC; 80061-TC; 80076-TC; 81000-TC; 82550-TC; 82570-TC; 83605-TC; 83735-TC; 83970; 84100-TC; 84153-TC; 84154-TC; 84155; 84155-TC; 84165; 84300-TC; 84443-TC; 84484-TC; 85025-TC; 85730-TC; 87040-TC; 87070-TC; 87081-TC; 87086-TC; 87186-TC; 92526; 92611-TC; 97110-TC; 97116-TC; 97530-TC; A4216; A6253; A6407; G0378; J1956; J2185; J2270; J2405; J3475; J3480; J3490; J7030

== ENCOUNTER 2019-07-15 23:18 | Inpatient (IN) | payer MEDICARE, MEDICAID ==
[~2019-07-15] VITALS: Ht 170.2 cm; Wt 56.4 kg
[~2019-07-15 23:18] MED LIST: BISA10SU61 RC; CYAN-51 PO; DOCU-141 PO; FOLI1TAB16 PO; MAGN400O6 PO; MERO500V3 IV; MUPI22OI7; NA P133E RC; NUT.237L67 PO; PANT40TA2 PO; TAMS-12 PO; TYL2T PO
--- NOTE | 2019-07-15 23:30 | NUR ---
[facility] R MID LOWER BACK WITH DISCHARGE. APPROX 3X2 CM, RED, FIRM. PT AAOX1. RESPIRATIONS EVEN AND UNLABORED. SKIN WARM AND INTACT. VITAL SIGNS STABLE. NO ACUTE DISTRESS NOTED AT THIS TIME. WILL CONTINUE TO MONITOR
--- NOTE | 2019-07-15 23:45 | NUR ---
WEB ANALYST AT BEDSIDE FOR BLOOD DRAW
[2019-07-15 23:51] LABS: BASOPHILS # (AUTO) 0.1 /CMM (0.0-0.2); BASOPHILS % (AUTO) 0.5 % (0.0-2.0); EOSINOPHILS % (AUTO) 6.5 % (0.0-6.0); HEMATOCRIT 26 % (39-51); HEMOGLOBIN 8.5 g/dL (13.5-17.5); LYMPHOCYTES # (AUTO) 1.9 /CMM (0.8-4.8); LYMPHOCYTES % (AUTO) 14.1 % (20.0-44.0); MEAN CORPUSCULAR HGB CONC 33 g/dl (31.0-36.0); MEAN CORPUSCULAR VOLUME 94 fL (80-96); MONOCYTES # (AUTO) 1.1 /CMM (0.1-1.30); MONOCYTES % (AUTO) 8.5 % (2.0-12.0); NEUTROPHILS # (AUTO) 9.4 /CMM (1.8-8.9); NEUTROPHILS % (AUTO) 70.4 % (43.0-81.0); PLATELET COUNT (AUTO) 414 /CMM (150-450); RED BLOOD CELL COUNT(AUTO) 2.78 MIL/uL (4.5-6.0); WHITE BLOOD COUNT (AUTO) 13.4 K/uL (4.3-11.0)
[2019-07-15 23:59] LABS: CALCIUM, SERUM 8.6 mg/dL (8.5-10.1); CREATININE 1.9 mg/dL (0.6-1.3); POTASSIUM 3.7 mmol/L (3.5-5.1)
[2019-07-15] MEDS ORDERED: CLINDAMYCIN 900 MG/6 ML VIAL ONE (23:59)
[2019-07-16] MEDS ORDERED: MAG HYDROX/AL HYDROX/SIMETH 30 ML UDC PO PRN
[2019-07-16] MEDS ORDERED: ACETAMINOPHEN 325 MG TABLET PO PRN
[2019-07-16] MEDS ORDERED: IV NS 0.9% 500 ML BAG IV ONE
[2019-07-16] MEDS ORDERED: Z GUARD REMEDY 2 OZ OINT TP PRN
[2019-07-16] MEDS ORDERED: ZOLPIDEM TARTRATE 5 MG TABLET PO PRN
[2019-07-16] MEDS ORDERED: CLINDAMYCIN IV RTU IN D5W 900 MG/50 ML PIGGYBACK IV ONE
[2019-07-16] MEDS ORDERED: MAGNESIUM HYDROXIDE 30 ML UDC PO PRN
[2019-07-16] MEDS ORDERED: HYDROCODONE/APAP 5/325MG 1 EACH TABLET PO PRN
[2019-07-16] MEDS ORDERED: ONDANSETRON HCL/PF 4 MG/2 ML VIAL IVP PRN
--- NOTE | 2019-07-16 00:31 | NUR ---
Report given to Marcell HUITRON for continuation of care.
--- NOTE | 2019-07-16 00:58 | NUR ---
pt transfered to via [facility].
[2019-07-16 01:21] VITALS: BP 139/91
[2019-07-16] MEDS ORDERED: CLINDAMYCIN IV RTU IN D5W 600 MG/50 ML PIGGYBACK IV SCH (05:00)
[2019-07-16] MEDS ORDERED: CLINDAMYCIN 900 MG/6 ML VIAL ONE (05:10)
--- NOTE | 2019-07-16 06:12 | NUR ---
MS RN NOTES AWAKE & RESPONSIVE. NOT IN ANY DISTRESS. NO SOB NOTED. DENIES ANY PAIN OR DISCOMFORT AT THIS TIME. WITH IV-HL PATENT & INTACT. MONITORED ACCORDINGLY. AM CARE DONE. CALL LIGHT WITHIN REACH. BED IN LOWEST POSITION. SR UP X 3 WITH BED ALARM ON FOR SAFETY. WILL ENDORSE TO NEXT SHIFT.
[2019-07-16 06:37] LABS: BASOPHILS % (AUTO) 0.3 % (0.0-2.0); EOSINOPHILS % (AUTO) 5.5 % (0.0-6.0); HEMATOCRIT 28 % (39-51); HEMOGLOBIN 9.4 g/dL (13.5-17.5); LYMPHOCYTES # (AUTO) 1.6 /CMM (0.8-4.8); LYMPHOCYTES % (AUTO) 12.3 % (20.0-44.0); MEAN CORPUSCULAR HGB CONC 33 g/dl (31.0-36.0); MEAN CORPUSCULAR VOLUME 94 fL (80-96); MONOCYTES # (AUTO) 0.9 /CMM (0.1-1.30); MONOCYTES % (AUTO) 7.2 % (2.0-12.0); NEUTROPHILS # (AUTO) 9.5 /CMM (1.8-8.9); NEUTROPHILS % (AUTO) 74.7 % (43.0-81.0); PLATELET COUNT (AUTO) 420 /CMM (150-450); RED BLOOD CELL COUNT(AUTO) 3.01 MIL/uL (4.5-6.0); WHITE BLOOD COUNT (AUTO) 12.7 K/uL (4.3-11.0)
[2019-07-16 06:56] LABS: CALCIUM, SERUM 8.3 mg/dL (8.5-10.1); CREATININE 1.9 mg/dL (0.6-1.3); MAGNESIUM 1.5 mg/dL (1.8-2.4); PHOSPHORUS 3.5 mg/dL (2.5-4.9)
--- NOTE | 2019-07-16 07:29 | NUR ---
MS RN OPENING NOTES RECEIVED PATIENT IN BED RESTING COMFORTABLY IN MODERATE HIGH BACK REST. A/O X 2. NOT IN ANY SIGNS OF DISTRESS NOTED AT THIS TIME. IV ACCESS ON LAC #18, HL. PATENT AND INTACT. ON ISOLATION PRECAUTION FOR POSSIBLE SCABIES. SAFETY MEASURES IN PLACE, BED IN LOW LOCKED POSITION WITH SIDE RAILS UP X2. CALL LIGHT WITHIN EASY REACH. WILL CONTINUE TO MONITOR.
[2019-07-16 07:47] LABS: THYROID STIMULATING HORMONE 0.691 uIU/mL (0.358-3.74)
[2019-07-16 08:00] VITALS: BP 116/70
[2019-07-16] MEDS ORDERED: FERR325T23 PO (09:20)
[2019-07-16] MEDS ORDERED: TAMS-12 PO (09:20)
[2019-07-16] MEDS ORDERED: DIPH-530 PO (09:20)
[2019-07-16] MEDS: Magnesium 1GM/D5W 100ML PREMIX 100 ML IV SCH ×3 (10:03→14:22)
[2019-07-16] MEDS: CLINDAMYCIN 600 MG in IV D5W 50 ML IV SCH ×2 (13:01→21:06)
[2019-07-16 16:00] VITALS: BP 136/76
--- NOTE | 2019-07-16 18:45 | NUR ---
MS RN CLOSING NOTES PATIENT IN BED RESTING COMFORTABLY IN MODERATE HIGH BACK REST. A/O X 2. NO SIGNS OF DISTRESS NOTED THROUGHOUT THE SHIFT. IV ACCESS ON LAC #18, HL. PATENT AND INTACT. ON ISOLATION PRECAUTION FOR SCABIES. ALL NURSING NEEDS ATTENDED. SAFETY MEASURES IN PLACE, BED IN LOW LOCKED POSITION WITH SIDE RAILS UP X2. CALL LIGHT WITHIN EASY REACH. WILL ENDORSE TO HEAD SCREEN WORKER NURSE FOR ANTONIO.
--- NOTE | 2019-07-16 19:15 | NUR ---
MS RN PM OPENING NOTES BEDSIDE REPORT RECIEVED FROM MARC HUITRON. PATIENT IN BED SEMI FOWLERS POSITION. A/O X 2. PT DENIES PAIN AND IN NO APPARENT DISTRESS BREATHING EVEN AND UNLABORED. IV ACCESS ON LAC #18, HL. PATENT AND INTACT. ON CONTACT ISOLATION PRECAUTION FOR SCABIES. SAFETY MEASURES IN PLACE, BED IN LOW LOCKED POSITION WITH SIDE RAILS UP X2. CALL LIGHT WITHIN REACH. WILL CONT TO MONITOR.
[2019-07-16 20:00] VITALS: BP 146/84
[2019-07-17] MEDS: CLINDAMYCIN 600 MG in IV D5W 50 ML IV SCH ×3 (04:49→20:50)
--- NOTE | 2019-07-17 05:45 | NUR ---
MS RN PM CLOSING NOTES PATIENT IN BED SEMI FOWLERS POSITION. A/O X 2. PT IN NO APPARENT DISTRESS BREATHING EVEN AND UNLABORED. IV ACCESS ON LAC #18, HL. PATENT AND INTACT FLUSHED. ON CONTACT ISOLATION PRECAUTION FOR SCABIES. SAFETY MEASURES IN PLACE, BED IN LOW LOCKED POSITION WITH SIDE RAILS UP X2. CALL LIGHT WITHIN REACH. WILL CONT TO MONITOR.
[2019-07-17 06:31] LABS: BASOPHILS # (AUTO) 0.1 /CMM (0.0-0.2); BASOPHILS % (AUTO) 0.5 % (0.0-2.0); EOSINOPHILS % (AUTO) 8.1 % (0.0-6.0); HEMATOCRIT 29 % (39-51); HEMOGLOBIN 9.5 g/dL (13.5-17.5); LYMPHOCYTES # (AUTO) 1.6 /CMM (0.8-4.8); LYMPHOCYTES % (AUTO) 13.2 % (20.0-44.0); MEAN CORPUSCULAR HGB CONC 33 g/dl (31.0-36.0); MEAN CORPUSCULAR VOLUME 95 fL (80-96); MONOCYTES # (AUTO) 0.9 /CMM (0.1-1.30); MONOCYTES % (AUTO) 7.2 % (2.0-12.0); NEUTROPHILS # (AUTO) 8.5 /CMM (1.8-8.9); PLATELET COUNT (AUTO) 411 /CMM (150-450); RED BLOOD CELL COUNT(AUTO) 3.06 MIL/uL (4.5-6.0)
[2019-07-17 06:59] LABS: CALCIUM, SERUM 8.5 mg/dL (8.5-10.1); CREATININE 1.7 mg/dL (0.6-1.3); MAGNESIUM 2.3 mg/dL (1.8-2.4); PHOSPHORUS 3.6 mg/dL (2.5-4.9); POTASSIUM 4.3 mmol/L (3.5-5.1)
--- NOTE | 2019-07-17 07:10 | NUR ---
RN OPENING NOTES RECEIVED PATIENT IN BED, RESTING COMFORTABLY ON SEMIFOWLERS. A/O X 2-3. NOT IN ANY FORM OF DISTRESS, NO SOB. DENIED PAIN OR DISCOMFORT AT THIS TIME. IV ACCESS ON LAC #18, SL, PATENT AND INTACT. ON ISOLATION PRECAUTION FOR POSSIBLE SCABIES. SAFETY MEASURES IN PLACE, BED IN LOW LOCKED POSITION WITH SIDE RAILS UP X2. CALL LIGHT WITHIN EASY REACH. WILL CONTINUE TO MONITOR ACCORDINGLY.
[2019-07-17 08:00] VITALS: BP 153/82
--- NOTE | 2019-07-17 10:35 | NUR ---
WOUND CARE CONSULT: PT FOLLOWED BY PLASTIC SURGERY TEAM. DEFER TO SURGICAL TEAM FOR WOUND TREATMENT PLAN. WILL SEE PRN. [facility]. CURRENT TIFFANIE SCORE IS 15.
[2019-07-17] MEDS ORDERED: PERMETHRIN 5% CRM 60 GM TUBE TP ONE (13:00)
[2019-07-17] MEDS ORDERED: PERMETHRIN 59 ML BOTTLE TP ONE (13:00)
[2019-07-17 16:00] VITALS: BP 157/105
--- NOTE | 2019-07-17 16:00 | NUR ---
rn notes Permethrin lotion and shampoo administered as ordered
[2019-07-17] MEDS: MUPIROCIN OINT 2% 22 GM TUBE TP SCH (18:22)
--- NOTE | 2019-07-17 19:29 | NUR ---
RN CLOSING NOTES PATIENT IN STABLE CONDITION. ALL NEEDS ATTENDED AND PROVIDED. ALL DUE MEDS GIVEN ORDERED. KEPT PATIENT SAFE AND COMFORTABLE. BED IN LOW/LOCKED POSITION, SIDERAILS UPX2, CALL LIGHT IN REACH. ENDORSED TO NIGHT RN FOR ANTONIO
--- NOTE | 2019-07-17 19:30 | NUR ---
RN OPEN NOTES RECEIVED PATIENT AWAKE IN BED. A/OX2-3. NO SIGNS OF DISTRESS OR DISCOMFORT. BREATHING EVEN AND UNLABORED. IV ACCESS IN LAC, PATENT AND INTACT, NO SIGNS OF REDNESS OR INFILTRATION. HAS F/C INTACT, DRAINING CLEAR YELLOW FLUID. BED IN LOW LOCKED POSITION WITH SIDE RAILS X2. CALL LIGHT WITHIN REACH. WILL CONTINUE TO MONITOR.
[2019-07-17 20:14] VITALS: BP 146/79
[2019-07-17] MEDS: HEPARIN SODIUM, PORCINE 5000 UNITS/1 ML VIAL SQ SCH (20:57)
[2019-07-18] MEDS: CLINDAMYCIN 600 MG in IV D5W 50 ML IV SCH ×3 (05:19→20:26)
[2019-07-18 06:49] LABS: BASOPHILS % (AUTO) 0.4 % (0.0-2.0); EOSINOPHILS % (AUTO) 9.2 % (0.0-6.0); HEMATOCRIT 31 % (39-51); HEMOGLOBIN 10.3 g/dL (13.5-17.5); LYMPHOCYTES # (AUTO) 1.6 /CMM (0.8-4.8); LYMPHOCYTES % (AUTO) 16.2 % (20.0-44.0); MEAN CORPUSCULAR HGB CONC 34 g/dl (31.0-36.0); MEAN CORPUSCULAR VOLUME 93 fL (80-96); MONOCYTES # (AUTO) 0.7 /CMM (0.1-1.30); MONOCYTES % (AUTO) 7.3 % (2.0-12.0); NEUTROPHILS # (AUTO) 6.4 /CMM (1.8-8.9); NEUTROPHILS % (AUTO) 66.9 % (43.0-81.0); PLATELET COUNT (AUTO) 466 /CMM (150-450); RED BLOOD CELL COUNT(AUTO) 3.27 MIL/uL (4.5-6.0); WHITE BLOOD COUNT (AUTO) 9.6 K/uL (4.3-11.0)
[2019-07-18 06:51] LABS: CALCIUM, SERUM 8.9 mg/dL (8.5-10.1); CREATININE 1.6 mg/dL (0.6-1.3); POTASSIUM 4.4 mmol/L (3.5-5.1)
--- NOTE | 2019-07-18 06:54 | NUR ---
RN CLOSING NOTES PATIENT RESTING COMFORTABLY IN BED. A/OX2-3. NO SIGNS OF DISTRESS OR DISCOMFORT. BREATHING EVEN AND UNLABORED. IV ACCESS IN LAC, PATENT AND INTACT, NO SIGNS OF REDNESS OR INFILTRATION. HAS F/C INTACT, DRAINING CLEAR YELLOW FLUID. ALL NEEDS MET. NO SIGNIFICANT CHANGES THROUGH THE NIGHT. BED IN LOW LOCKED POSITION WITH SIDE RAILS X2. CALL LIGHT WITHIN REACH. WILL ENDORSE TO AM SHIFT FOR ANTONIO.
--- NOTE | 2019-07-18 07:40 | NUR ---
MS RN NOTES PATIENT RECEIVED RESTING INSIDE ROOM. AWAKE, ALERT AND ORIENTED X 3, VERBALLY RESPONSIVE AND RESPONDS TO VERBAL AND TACTILE STIMULI. NO ACUTE DISTRESS. DENIES ANY PAIN OR DISCOMFORT. PATIENT CALM AND RELAXED. HIDALGO CATH IN PLACE AND DRAINING WELL. MAINTAINED ISOLATION PRECAUTIONS. WILL CONTINUE TO MONITOR. BED LOCKED AND IN LOW POSITION. BILATERAL UPPER SIDE RAILS UP AND LOCKED. CALL LIGHT WITHIN EASY REACH
[2019-07-18 08:00] VITALS: BP 175/80
[2019-07-18] MEDS: HEPARIN SODIUM, PORCINE 5000 UNITS/1 ML VIAL SQ SCH ×2 (09:07→20:26)
[2019-07-18] MEDS: MUPIROCIN OINT 2% 22 GM TUBE TP SCH ×2 (09:10→20:33)
[2019-07-18] MEDS ORDERED: IV NS 0.9% 1,000 ML IV PRN (11:30)
[2019-07-18 16:00] VITALS: BP 140/87
--- NOTE | 2019-07-18 18:44 | NUR ---
MS RN NOTES PATIENT RESTING INSIDE ROOM. AWAKE, ALERT AND ORIENTED X 3, NO ACUTE DISTRESS. DENIES ANY PAIN OR DISCOMFORT. NO CHANGES IN LOC NOTED. IVF INFUSING TOLERATED. HIDALGO CATH IN PLACE WITH CLEAR YELLOW URINE OUTPUT NOTED ON COLLECTING BAG. MAINTAINED ISOLATION PRECAUTIONS. PATIENT KEPT CLEAN, DRY AND COMFORTABLE. WILL ENDORSE TO INCOMING SHIFT FOR ANTONIO. BED LOCKED AND IN LOW POSITION. BILATERAL UPPER SIDE RAILS UP AND LOCKED. CALL LIGHT WITHIN EASY REACH
--- NOTE | 2019-07-18 19:30 | NUR ---
RECEIVED PATIENT IN BED ALERT AND ORIENTATED. WATCHING TV. CALL LIGHT WITHIN HIS REACH AND BED ALARM ON .CONTACT ISOLATION ON GOING
[2019-07-18 20:00] VITALS: BP 132/74
[2019-07-18 20:14] VITALS: BP 132/74
[2019-07-19] MEDS: CLINDAMYCIN 600 MG in IV D5W 50 ML IV SCH ×3 (04:29→21:49)
--- NOTE | 2019-07-19 04:34 | NUR ---
slept thru the night. changing his own position frequently. right lower back top right buttocks not s/p boil. area flat no redness noted skin was slit s/p drain, also read in MD notes it was drained . cleaned with NSS and top ATB as ordered applied, thru the night he has been able to verbalize his needs and follow directions afebrile no c/o pain
--- NOTE | 2019-07-19 07:40 | NUR ---
MS RN NOTES PATIENT RECEIVED RESTING INSIDE ROOM. AWAKE, ALERT AND ORIENTED X 3, NO ACUTE DISTRESS. DENIES ANY PAIN OR DISCOMFORT. NO CHANGES IN LOC NOTED. HIDALGO CATH IN PLACE WITH YELLOW URINE OUTPUT WITH SEDIMENTS NOTED IN COLLECTING BAG. MAINTAINED ISOLATION PRECAUTIONS. WILL CONTINUE TO MONITOR. BED LOCKED AND IN LOW POSITION. BILATERAL UPPER SIDE RAILS UP AND LOCKED. CALL LIGHT WITHIN EASY REACH
[2019-07-19 07:43] LABS: BASOPHILS % (AUTO) 0.5 % (0.0-2.0); EOSINOPHILS % (AUTO) 11.1 % (0.0-6.0); HEMATOCRIT 32 % (39-51); HEMOGLOBIN 10.4 g/dL (13.5-17.5); LYMPHOCYTES # (AUTO) 2.3 /CMM (0.8-4.8); LYMPHOCYTES % (AUTO) 25.9 % (20.0-44.0); MEAN CORPUSCULAR HGB CONC 33 g/dl (31.0-36.0); MEAN CORPUSCULAR VOLUME 93 fL (80-96); MONOCYTES # (AUTO) 0.8 /CMM (0.1-1.30); NEUTROPHILS # (AUTO) 4.7 /CMM (1.8-8.9); NEUTROPHILS % (AUTO) 53.5 % (43.0-81.0); PLATELET COUNT (AUTO) 496 /CMM (150-450); WHITE BLOOD COUNT (AUTO) 8.8 K/uL (4.3-11.0)
[2019-07-19 07:52] LABS: CALCIUM, SERUM 8.8 mg/dL (8.5-10.1); CREATININE 1.7 mg/dL (0.6-1.3); POTASSIUM 4.9 mmol/L (3.5-5.1)
[2019-07-19 08:00] VITALS: BP 152/88
[2019-07-19 08:06] LABS: HIV SCRN 4G wRFX Non Reactive (Non Reactive)
[2019-07-19] MEDS: HEPARIN SODIUM, PORCINE 5000 UNITS/1 ML VIAL SQ SCH ×2 (08:56→21:50)
[2019-07-19] MEDS: MUPIROCIN OINT 2% 22 GM TUBE TP SCH ×2 (09:02→21:52)
[2019-07-19] MEDS ORDERED: IVERMECTIN 3 MG TABLET PO ONE (14:00)
[2019-07-19 16:00] VITALS: BP 149/82
--- NOTE | 2019-07-19 16:18 | NUR ---
MS RN NOTES PATIENT NOTED WITH EPISODES OF REFUSING IVF. PATIENT WOULD VERBALIZE, "I DONT NEED I, STOP IT". RISKS AND BENEFITS EXPLAINED BUT TO NO AVAIL. MD AWARE. WILL CONTINUE TO MONITOR
--- NOTE | 2019-07-19 18:28 | NUR ---
MS RN NOTES MAINTAINED ISOLATION PRECAUTIONS. WILL CONTINUE TO MONITOR
--- NOTE | 2019-07-19 18:29 | NUR ---
MS RN NOTES PATIENT RESTING INSIDE ROOM. AWAKE, ALERT AND ORIENTED. NO ACUTE DISTRESS. NO CHANGES IN LOC NOTED. PATIENT KEPT CLEAN, DRY AND COMFORTABLE. PROVIDED WITH CALM, SAFE, HAZARD-FREE ENVIRONMENT. CALL LIGHT WITHIN EASY REACH
--- NOTE | 2019-07-19 19:12 | NUR ---
MS RN NOTES PATIENT RESTING INSIDE ROOM. NO ACUTE DISTRESS. REPORT GIVEN TO ABRAHAN HUITRON FOR ANTONIO.
[2019-07-19 20:00] VITALS: BP 149/93
--- NOTE | 2019-07-19 22:00 | NUR ---
MS RN OPENING NOTE RECEIVED PATIENT FROM ABRAHAN HUITRON, REGISTRY. PATIENT ON SCABIES CONTACT ISOLATION. A/O X3. TOLERATING ROOM AIR. RESPIRATIONS ARE EVEN AND UNLABORED. NO S/S SOB NOTED. DENIES PAIN AT THIS TIME. IN NO APPARENT DISTRESS. IV ACCESS IN LAC #20 PATENT AND SALINE LOCKED. HIDALGO IS PRESENT, DRAINING TO GRAVITY, URINE IS YELLOW. BED IS LOW AND LOCKED, HOB FLAT, SIDE RIALS UP X2. BED ALARM ON. CALL LIGHT WITHIN REACH. WILL CONTINUE TO MONITOR.
[2019-07-20] MEDS: CLINDAMYCIN 600 MG in IV D5W 50 ML IV SCH ×2 (05:00→13:41)
--- NOTE | 2019-07-20 06:22 | NUR ---
MS RN CLOSING NOTE PATIENT ON SCABIES CONTACT ISOLATION. PATIENT IN BED. A/O X3. REMAINS TOLERATING ROOM AIR. RESPIRATIONS ARE EVEN AND UNLABORED. NO SOB NOTED. NO C/O PAIN. NO DISTRESS DISTRESS. IV ACCESS MAINTAINED IN LAC #20 PATENT RUNNING NS @100ML/HR. HIDALGO REMAINS PRESENT, DRAINING TO GRAVITY, URINE IS YELLOW, CLEAR, OUTPUT 1450. BED REMAINS LOW AND LOCKED, HOB FLAT, SIDE RIALS UP X2. BED ALARM ON. CALL LIGHT WITHIN REACH. WILL ENDORSE TO NEXT SHIFT.
[2019-07-20 06:42] LABS: BASOPHILS # (AUTO) 0.1 /CMM (0.0-0.2); BASOPHILS % (AUTO) 0.7 % (0.0-2.0); EOSINOPHILS % (AUTO) 12.1 % (0.0-6.0); HEMATOCRIT 30 % (39-51); HEMOGLOBIN 9.9 g/dL (13.5-17.5); LYMPHOCYTES # (AUTO) 1.7 /CMM (0.8-4.8); LYMPHOCYTES % (AUTO) 22.4 % (20.0-44.0); MEAN CORPUSCULAR HGB CONC 33 g/dl (31.0-36.0); MEAN CORPUSCULAR VOLUME 93 fL (80-96); MONOCYTES # (AUTO) 0.8 /CMM (0.1-1.30); NEUTROPHILS # (AUTO) 4.3 /CMM (1.8-8.9); NEUTROPHILS % (AUTO) 54.8 % (43.0-81.0); PLATELET COUNT (AUTO) 439 /CMM (150-450); RED BLOOD CELL COUNT(AUTO) 3.22 MIL/uL (4.5-6.0); WHITE BLOOD COUNT (AUTO) 7.8 K/uL (4.3-11.0)
[2019-07-20 07:10] LABS: CALCIUM, SERUM 8.7 mg/dL (8.5-10.1); CREATININE 1.9 mg/dL (0.6-1.3); POTASSIUM 4.3 mmol/L (3.5-5.1)
--- NOTE | 2019-07-20 07:57 | NUR ---
MS RN OPENING NOTES Received Patient awake and watching TV in bed. A/O x 3. VS stable with no acute distress. Breathing even and unlabored on room air with no respiratory distress. Denies pain. Murphy Cath in place and patent. 20g PIV on LAC clean, intact, patent and flushing well with NS running at 100ml/hr. Safety precautions in place. Bed locked and set to lowest position with side rails x 2 up. Contact Isolation precautions in place. All needs rendered at this time. Call light within reach. Will continue to monitor.
[2019-07-20] MEDS: HEPARIN SODIUM, PORCINE 5000 UNITS/1 ML VIAL SQ SCH (08:32)
[2019-07-20] MEDS: MUPIROCIN OINT 2% 22 GM TUBE TP SCH (08:35)
[2019-07-20 16:23] VITALS: BP 155/87
--- NOTE | 2019-07-20 18:37 | NUR ---
MS RN NOTES Patients BP-164/94 prior to discharging. Notified Dr. Martinez at this time. Will continue to monitor.
--- NOTE | 2019-07-20 18:55 | NUR ---
MS RN NOTES Called [facility] to contact Dr. Martinez for Patients BP-164-94 at this time. Will continue to monitor.
--- NOTE | 2019-07-20 19:27 | NUR ---
MS RN CLOSING NOTES Patient awake and watching TV in bed. A/O x 3. BP elevated to 164/94 prior to discharge. Unable to transfer Patient at this time. Notified Dr. Martinez and awaiting orders. Received call from [employer] stating that Dr. Martinez is off. Transferred to Dr. Petersen. Will endorse to oncoming shift. Otherwise Patient in stable condition with no acute distress. Breathing even and unlabored on room air with no respiratory distress. Denies pain. Murphy Cath in place and patent with clear, yellow output noted. Removed intact 20g PIV on LAC. Patient tolerated well. Medication reconciliation and discharge orders reviewed and explained to Patient. Patient verbalized understanding. Skin assessment pictures taken and placed in chart. Patient will follow up with primary MD. Safety precautions in place. Bed locked and set to lowest position with side rails x 2 up. Contact Isolation precautions in place. All needs rendered at this time. Call light within reach. Will endorse plan of care to oncoming shift.
--- NOTE | 2019-07-20 19:55 | NUR ---
RN NOTES SPOKE WITH DR DENTON ON THE PHONE. INFORMED HIM OF Pt's HIGH BP OF 171/109 & 164/94. GAVE X1 ORDER OF HYDRALAZINE 25MG PO. WILL CARRY OUT ORDER.
[2019-07-20] MEDS ORDERED: hydrALAZINE HCL 25 MG TABLET PO ONE (20:00)
[2019-07-20 20:08] VITALS: BP 157/94
--- NOTE | 2019-07-20 20:30 | NUR ---
RN NOTES SPOKE WITH RNISAAK FROM [facility]. INFORMED HER THAT Pt WAS GIVEN A X1 DOSE OF HYDRALAZINE FOR THE Pt's BP. MOST RECENT BP WAS 157/94. ISAAK SPOKE HER PUNCH PRESS FEEDER, PUNCH PRESS FEEDER ASKED IF THE Pt CAN STAY FOR 1 MORE NIGHT HERE AT [facility] SO THAT HIS BP CAN BE MONITORED.
--- NOTE | 2019-07-20 20:40 | NUR ---
RN NOTES SPOKE WITH DR. DENTON, INFORMED HIM THAT THE FACILITY WISHES FOR THE Pt TO STAY FOR THE NIGHT SO THAT HIS BP CAN BE MONITORED. DR DENTON SAID THAT THE Pt IS MEDICALLY CLEARED TO BE DISCHARGED AND THAT THE BP WILL BE TAKEN CARE OF BY THE BP MED. PLUS Pt MUST BE DISCHARGED TONIGHT DUE TO INSURANCE POLICY. WILL RELAY THE MESSAGE.
--- NOTE | 2019-07-20 20:45 | NUR ---
RN NOTES RECHECKED Pt's BP: 144/80 HR 62. SPOKE WITH ISAAK FROM [facility], UPDATED HER ON Pt'S NEW BP, SAID THAT THEY WILL ACCEPT HIM NOW. INFORMED THE EMT CREW WHO WERE WAITING AT BEDSIDE, THAT THE Pt IS GOOD TO GO NOW.
--- NOTE | 2019-07-20 21:00 | NUR ---
FLOW TRADER NOTES REMOVED IV FROM Pt's LAC. CLEANED AREA, AND SECURED WITH GAUZE AND TAPE. NO SIGNS OF BLEEDING NOTED. Pt RESTING IN BED WATCHING TV. NO S/S OF ACUTE DISTRESS OR SOB NOTED. Pt WAS SAFELY TRANSFERRED TO [facility]. SAFETY MEASURES IN PLACE. FACILITY AWARE THAT Pt IS ON THEIR WAY. Pt SAFELY LEFT SOH WITH EMT CREW.
== END 2019-07-20 21:00 | DRG 602 ==
LOC: ER 23:19 → MED 07-16 00:13
PROVIDERS: ADMIT Student in an Organized Health Care Education/Training Program
DX: L02.222 Furuncle of back [any part, except buttock and flank] (principal); N17.0 Acute kidney failure with tubular necrosis; G92 Toxic encephalopathy; I13.0 Hypertensive heart and chronic kidney disease with heart failure and stage 1 through stage 4 chronic kidney disease, or unspecified chronic kidney disease; L03.312 Cellulitis of back [any part except buttock and flank]; G81.94 Hemiplegia, unspecified affecting left nondominant side; N13.30 Unspecified hydronephrosis; N40.0 Benign prostatic hyperplasia without lower urinary tract symptoms; I50.9 Heart failure, unspecified; B86 Scabies; L02.32 Furuncle of buttock; E83.42 Hypomagnesemia; F01.50 Vascular dementia, unspecified severity, without behavioral disturbance, psychotic disturbance, mood disturbance, and anxiety; I25.10 Atherosclerotic heart disease of native coronary artery without angina pectoris; N18.3 Chronic kidney disease, stage 3 (moderate); D63.8 Anemia in other chronic diseases classified elsewhere; Z86.73 Personal history of transient ischemic attack (TIA), and cerebral infarction without residual deficits; Z88.1 Allergy status to other antibiotic agents; Z79.899 Other long term (current) drug therapy
CPT/HCPCS: 36415; 72220-TC; 80048-TC; 80061-TC; 83735-TC; 84100-TC; 84443-TC; 85025-TC; 85652-TC; 87040-TC; 87070-TC; 87081-TC; 97116-TC; 97530-TC; A4216; A6253; G0378; J1644; J3475; J3490; J7030; J7040; J7050; J7060

== ENCOUNTER 2019-10-18 02:29 | Emergency (ER) | payer MEDICARE, OTHER ==
[~2019-10-18] VITALS: Ht 170.2 cm; Wt 73.5 kg
[~2019-10-18 02:29] MED LIST changes: -CYAN-51 PO; +DIPH-530 PO; +FERR325T23 PO; -FOLI1TAB16 PO; -MERO500V3 IV; -MUPI22OI7; -NUT.237L67 PO; -PANT40TA2 PO
[2019-10-18] MEDS ORDERED: LIDOCAINE 2% JEL UROJET 10 ML MM ONE ×2 (02:47→03:00)
[2019-10-18 03:48] LABS: APPEARANCE,URINE Cloudy (CLEAR); BILIRUBIN,URINE Negative (NEGATIVE); BLOOD, URINE Large Ery/uL (NEGATIVE); COLOR,URINE Yellow (YELLOW); KETONES,URINE Negative (NEGATIVE); LEUKOCYTE ESTERASE ,URINE Small (NEGATIVE); NITRITE, URINE Negative (NEGATIVE); PH,URINE 5.5 (5.0-8.0); PROTEIN,URINE >=300 mg/dl (NEGATIVE); UGLUCOSE Negative (NEGATIVE); UROBILINOGEN,URINE 0.2 EU/dL (0.2)
[2019-10-18 04:37] LABS: BACTERIA,URINE Many /HPF (None Seen); RBC,URINE 81-100 /HPF (0-2); SQUAMOUS EPITHELIAL CELL,UR Rare /HPF (None Seen); WBC,URINE TOO NUMEROUS TO COUN /HPF (0-3)
--- NOTE | 2019-10-18 05:08 | NUR ---
rhonda ballesteros [id number]. trip#[id number]
[2019-10-18 06:38] VITALS: BP 142/94
[2020-01-10] MEDS ORDERED: HYDR-4077 PO (13:38)
[2020-01-10] MEDS ORDERED: TEMA15CA5 PO (13:38)
[2020-01-10] MEDS ORDERED: NITR100C15 PO (13:38)
[2020-01-10] MEDS ORDERED: HYDR-3972 PO (13:38)
[2020-01-10] MEDS ORDERED: ENOX40DI SQ (13:38)
== END 2019-10-18 06:48 | disposition home or self-care (01) ==
LOC: ER 02:29
DX: R33.9 Retention of urine, unspecified (principal); F03.90 Unspecified dementia, unspecified severity, without behavioral disturbance, psychotic disturbance, mood disturbance, and anxiety; I10 Essential (primary) hypertension; E11.9 Type 2 diabetes mellitus without complications; F10.20 Alcohol dependence, uncomplicated; Y90.9 Presence of alcohol in blood, level not specified; Z88.1 Allergy status to other antibiotic agents; Z88.5 Allergy status to narcotic agent; Z79.899 Other long term (current) drug therapy; Z99.2 Dependence on renal dialysis; Z86.73 Personal history of transient ischemic attack (TIA), and cerebral infarction without residual deficits
CPT/HCPCS: 51702; 81001; 87077; 87086; 87186; 99284; J3490; 81000-TC

== ENCOUNTER 2020-01-06 22:30 | Inpatient (IN) | payer MEDICARE, OTHER ==
[~2020-01-06] VITALS: Ht 170.2 cm; Wt 72.6 kg
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
--- NOTE | 2020-01-06 22:43 | NUR ---
AT BEDSIDE FOR EVALUATION.
--- NOTE | 2020-01-06 23:05 | NUR ---
xray at bedside
[2020-01-07] VITALS (7 sets, daily range): BP systolic 135–176; BP diastolic 70–94
--- NOTE | 2020-01-07 00:27 | NUR ---
DR ZAVALA ON THE PHONE W/ IOANA FROM [facility]
--- NOTE | 2020-01-07 00:30 | NUR ---
Cableman at bedside for labs
[2020-01-07 00:36] LABS: BASOPHILS % (AUTO) 0.3 % (0.0-2.0); EOSINOPHILS % (AUTO) 1.6 % (0.0-6.0); HEMATOCRIT 37 % (39-51); HEMOGLOBIN 12.4 g/dL (13.5-17.5); LYMPHOCYTES # (AUTO) 1.1 /CMM (0.8-4.8); LYMPHOCYTES % (AUTO) 11.7 % (20.0-44.0); MEAN CORPUSCULAR HGB CONC 33 g/dl (31.0-36.0); MEAN CORPUSCULAR VOLUME 96 fL (80-96); MONOCYTES # (AUTO) 0.8 /CMM (0.1-1.30); MONOCYTES % (AUTO) 8.7 % (2.0-12.0); NEUTROPHILS # (AUTO) 7.1 /CMM (1.8-8.9); NEUTROPHILS % (AUTO) 77.7 % (43.0-81.0); PLATELET COUNT (AUTO) 283 /CMM (150-450); RED BLOOD CELL COUNT(AUTO) 3.87 MIL/uL (4.5-6.0); WHITE BLOOD COUNT (AUTO) 9.1 K/uL (4.3-11.0)
--- NOTE | 2020-01-07 00:40 | NUR ---
xray at bedside Addendum: 01/07/20 at 0047 by ALAM (for Chest)
[2020-01-07] MEDS ORDERED: IV NS 0.9% 1,000 ML IV PRN (00:52)
[2020-01-07] MEDS ORDERED: TEMAZEPAM 15 MG CAPSULE PO PRN (01:00)
[2020-01-07] MEDS ORDERED: ONDANSETRON HCL/PF 4 MG/2 ML VIAL IVP PRN (01:00)
[2020-01-07] MEDS ORDERED: Z GUARD REMEDY 2 OZ OINT TP PRN (01:00)
--- NOTE | 2020-01-07 01:00 | NUR ---
MS BED 326-1
[2020-01-07] MEDS ORDERED: PANT40TA2 PO (01:08)
[2020-01-07] MEDS ORDERED: CRAN425C6 PO (01:08)
[2020-01-07] MEDS ORDERED: CYAN-51 PO (01:08)
--- NOTE | 2020-01-07 01:16 | NUR ---
REPORT GIVEN TO NELSON HUITRON FOR ANTONIO.
--- NOTE | 2020-01-07 01:39 | NUR ---
PT TRANSFERED PER ACLS PROTOCOL
--- NOTE | 2020-01-07 01:40 | NUR ---
RN OPEN NOTES PATIENT ARRIVED FROM ED AND IS STATING HE IS IN PAIN. A/O X3-4. PATIENT ORIENTED TO ROOM. BED IS IN LOWEST LOCKED POSITION WITH SIDE RAILS UP. SATURATING AT 95% ON RA, NO SOB/ ACUTE RESPIRATORY DISTRESS NOTED. CALL LIGHT IS WITHIN REACH. WILL CONTINUE TO MONITOR.
[2020-01-07] MEDS: MORPHINE SULFATE INJ 2 MG/ML DISP.SYRIN IV PRN ×3 (01:46→15:40)
--- NOTE | 2020-01-07 01:46 | NUR ---
RN NOTES ADMINISTERED MORPHINE PER PATIENT'S REQUEST. STATED HIS PAIN WAS A 10/10 ON R HIP. PATIENT ALSO REFUSED A SKIN ASSESSMENT, STATED HE WAS IN PAIN AND DID NOT WANT ONE DONE TODAY. WILL CONTINUE TO MONITOR.
--- NOTE | 2020-01-07 06:31 | NUR ---
RN CLOSE NOTES PATIENT IS LAYING IN BED. BED IS IN LOWEST LOCKED POSITION WITH SIDE RAILS UP. BED ALARM IS ON. SATURATING AT 95% ON RA, NO SOB/ACUTE RESPIRATORY DISTRESS NOTED. CALL LIGHT IS WITHIN REACH. IV ON R AC #20G IS PATENT AND INTACT RUNNING NS@ 75MLS/HR. WILL ENDORSE TO AM NURSE.
[2020-01-07] MEDS ORDERED: MAGNESIUM HYDROXIDE 30 ML UDC PO PRN (07:30)
[2020-01-07] MEDS ORDERED: ACETAMINOPHEN 325 MG TABLET PO PRN (07:30)
[2020-01-07] MEDS ORDERED: BISACODYL SUPP (10 MG) 10 MG/SUPP.RECT SUPP.RECT RC PRN (07:30)
--- NOTE | 2020-01-07 08:00 | NUR ---
RN NOTES RECEIVED PATIENT IN THE BED A/O X3, ON ROOM AIR, REFUSED PAIN AT THIS TIME BUT PAINFUL WHEN MOVING, NO ACUTE RESPIRATORY DISTRESS, V/S TAKEN BP 165/90, P-61, R-17, T-98. DVT PUMP ON RIGHT LEG. F/C DRAINING LIGHT YELLOW OUTPUT. IV ACCESS ON RIGHT AC AREA INTACT. US TECH NEXT TO THE BED FOR ECHOCARDIOGRAM. CALL LIGHT WITHIN TO REACH, CONTINUED MONITORING.
[2020-01-07 08:01] LABS: IRON, SERUM 42 ug/dl (50-175); TOTAL IRON BINDING CAPACITY 202 ug/dl (250-450)
[2020-01-07 08:04] LABS: MAGNESIUM 1.9 mg/dL (1.8-2.4); PHOSPHORUS 3.1 mg/dL (2.5-4.9)
--- NOTE | 2020-01-07 08:25 | NUR ---
RN NOTES GET CALL FROM KAREN Siddiqui GET TO ORDER PATIENT WILL SCHEDULED AFTERNOON SURGERY RIGHT HIP HEMIARTHROPLASTY, AND PATIENT NEED CONSENT FORM. ORDER TAKEN AND CARRIED OUT.
[2020-01-07 08:42] LABS: CHOLESTEROL 127 mg/dL (<200); FERRITIN 193 ng/mL (8-388); HDL CHOLESTEROL 45 mg/dL (40-60); LDL 72 mg/dL (0-99); THYROID STIMULATING HORMONE 0.526 uIU/mL (0.358-3.74); TRIGLYCERIDES 86 mg/dL (30-150)
[2020-01-07] MEDS: DOCUSATE SODIUM 100 MG CAPSULE PO SCH (08:55)
[2020-01-07] MEDS: HEPARIN SODIUM, PORCINE 5000 UNITS/1 ML VIAL SQ SCH ×2 (08:56→21:10)
[2020-01-07] MEDS ORDERED: Medication Not On Formulary EA (Cranberry Extract (Cranberry) 850 MG) PO SCH (09:00)
[2020-01-07] MEDS ORDERED: PANTOPRAZOLE 40 MG TABLET.DR PO SCH (09:00)
[2020-01-07] MEDS: PANTOPRAZOLE 40 MG VIAL IV SCH (09:35)
[2020-01-07] MEDS: AMLODIPINE BESYLATE 10 MG TABLET PO SCH (09:36)
--- NOTE | 2020-01-07 09:36 | NUR ---
rn notes administered morphine sulfate 4 mg /ml iv push for pain 04/07 per patient request, v/s taken bp 140/80, p- 57, r-17, also administered scheduled medication, call light within to reach, us kidney done .
--- NOTE | 2020-01-07 09:50 | NUR ---
rn notes collected ua/uc at this time from catheter port.
[2020-01-07 11:19] LABS: APPEARANCE,URINE SL CLOUDY (CLEAR); BILIRUBIN,URINE NEGATIVE (NEGATIVE); BLOOD, URINE SMALL Ery/uL (NEGATIVE); KETONES,URINE NEGATIVE (NEGATIVE); LEUKOCYTE ESTERASE ,URINE MODERATE (NEGATIVE); NITRITE, URINE NEGATIVE (NEGATIVE); PH,URINE 6.5 (5.0-8.0); PROTEIN,URINE 100 mg/dl (NEGATIVE); UGLUCOSE NEGATIVE (NEGATIVE); UROBILINOGEN,URINE 0.2 EU/dL (0.2)
[2020-01-07 11:37] LABS: COLOR,URINE STRAW (YELLOW)
[2020-01-07 11:41] LABS: WBC,URINE 21-50 /HPF (0-3)
[2020-01-07 11:42] LABS: BACTERIA,URINE 2+ /HPF (None Seen); MUCUS,URINE Moderate /LPF (None Seen); SQUAMOUS EPITHELIAL CELL,UR 0-2 /HPF (None Seen); URINE AMORPHOUS URATE Moderate /HPF (None Seen)
--- NOTE | 2020-01-07 12:20 | NUR ---
RN NOTES PATIENT ENFORCEMENT OFFICER AT THIS TIME FOR SURGERY, MEDICATION WERE ADMINISTERED FOR PAIN EFFECTIVE, PATIENT STABLE, NO ACUTE RESPIRATORY DISTRESS, V/S TAKEN BP 160/82, P-57.
[2020-01-07] MEDS ORDERED: BUPIVACAINE 0.5 % PF 150 MG/30 ML VIAL ONE (12:35)
[2020-01-07] MEDS ORDERED: BACITRACIN 50000 UNITS/VIAL ONE (12:36)
[2020-01-07] MEDS ORDERED: CLINDAMYCIN 900 MG/6 ML VIAL ONE (12:54)
[2020-01-07] MEDS ORDERED: TRANEXAMIC ACID IV ONE (14:00)
[2020-01-07] MEDS ORDERED: NS 0.9% IV ONE (14:00)
--- NOTE | 2020-01-07 15:00 | NUR ---
RN NOTES PATIENT BACK AT THIS TIME FROM SURGERY, AWAKE WAS COMPLAINING OF PAIN 5/10 PER PAIN SCALE. APPLIED O2-2LNC, V/S TAKEN BP-151/84, P-106, R-20, T98, O2-96. PATIENT HAD DRESSING ON RIGHT HIP INTACT, NO BLEEDING, LEG IMMOBILIZED ON RIGHT LEG, AND ABDUCTION PILLOW. DVT PUMP ON. RESUME PREOP ORDERS, IN 24HR GET LOVENOX 40 SQ DAILY IF HG->9, PT , POSTERIOR HIP PRECAUTION. ORDERS TAKEN AND CARRIED OUT.
[2020-01-07] MEDS ORDERED: FENTANYL PF 100MCG/2ML AMPUL ONE (15:17)
--- NOTE | 2020-01-07 15:30 | NUR ---
RN NOTES V/S TAKEN BP 152/84, P-94, O2-99 O22L, EDUCATED PATIENT INTENSIVE SPIROMETER TO USED, INFUSING NS AT 75 ML/HR INTACT ON RIGHT AC AREA.
--- NOTE | 2020-01-07 15:40 | NUR ---
rn notes Administered morphine sulfate 4 mg/ml iv push pain 04/07 per patients request, v/s taken bp-152/84, p94, continued monitoring.
--- NOTE | 2020-01-07 18:30 | NUR ---
RN NOTES MEDICATION WERE ADMINISTERED FOR PAIN EFFECTIVE. PATIENT RESTING IN THE BED, V/S STABLE. INFUSING NS AT 75ML/HR ON RIGHT AC AREA INTACT, F/C DRAINING LIGHT YELLOW OUTPUT. CALL LIGHT WITHIN TO REACH, PATIENT TOLERATED DINNER WELL. ENDORSED ONCOMING NURSE FOLLOW PLAN OF CARE.
--- NOTE | 2020-01-07 19:35 | NUR ---
MS RN OPENING NOTES PATIENT SLEEPING IN BED, EASY TO AWAKEN. A/OX3. ABLE TO VERBALIZE NEEDS. ON RA. NO S/S OF ACUTE RESPIRATORY DISTRESS OR C/O PAIN AT THIS TIME. RIGHT LEG IMMOBILIZER AND ABDUCTION PILLOW PRESENT; DRESSING ON RIGHT HIP DRY AND INTACT. IV PRESENT ON RIGHT AC, SIZE 20, INTACT & PATENT WITH NS RUNNING AT 75 ML/HR. HIDALGO CATH PRESENT, DRAINING WELL, 1200 ML OF CLEAR YELLOW URINE EMPTIED PER DAY SHIFT RN. SAFETY MEASURES IN PLACE AND PATIENT'S NEEDS MET. BED LOCKED, ALARM ON, SIDE RAILS X2, HOB ELEVATED, CALL LIGHT WITHIN REACH. WILL CONTINUE TO MONITOR.
[2020-01-07] MEDS: CLINDAMYCIN 900 MG in IV D5W 50 ML IV SCH (21:07)
[2020-01-07] MEDS: TAMSULOSIN 0.4 MG CAP.SR.24H PO SCH (21:07)
--- NOTE | 2020-01-07 22:30 | NUR ---
MS RN NOTES PATIENT REFUSED REPOSITIONING
[2020-01-07] MEDS: HYDROCODONE/APAP 5/325MG 1 EACH TABLET PO PRN (23:43)
--- NOTE | 2020-01-07 23:43 | NUR ---
MS RN NOTES PATIENT C/O OF RIGHT HIP PAIN RATED 5/10. PER PATIENT'S REQUEST ADMINISTERED PRN NORCO 5/325 MG PO. VITAL SIGNS - BP: 145/70. CALL LIGHT WITHIN REACH. WILL CONTINUE TO MONITOR.
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
[2020-01-08 02:51] VITALS: BP 155/84
[2020-01-08] MEDS: MORPHINE SULFATE INJ 2 MG/ML DISP.SYRIN IV PRN (02:51)
--- NOTE | 2020-01-08 02:51 | NUR ---
MS RN NOTES PATIENT ACCEPTED PRN PAIN MEDICATION FOR RIGHT HIP RATED 10/10. ADMINISTERED PRN MORPHINE 4MG IV. VITALS- BP: 155/84 HR: 115. CALL LIGHT WITHIN REACH. WILL CONTINUE TO MONITOR.
--- NOTE | 2020-01-08 03:15 | NUR ---
MS RN NOTES NEW HIDALGO CATH INSERTED. CLEAR YELLOW URINE DRAINING WELL BY GRAVITY. WILL CONTINUE TO MONITOR.
[2020-01-08] MEDS: CLINDAMYCIN 900 MG in IV D5W 50 ML IV SCH (04:35)
[2020-01-08 05:15] VITALS: BP 111/79
--- NOTE | 2020-01-08 06:37 | NUR ---
MS RN CLOSING NOTES PATIENT AWAKE IN BED. A/OX3. ABLE TO VERBALIZE NEEDS. ON RA. NO S/S OF ACUTE RESPIRATORY DISTRESS OR C/O PAIN AT THIS TIME. RIGHT LEG IMMOBILIZER AND ABDUCTION PILLOW PRESENT; DRESSING ON RIGHT HIP DRY AND INTACT. IV PRESENT ON RIGHT AC, SIZE 20, INTACT & PATENT WITH NS RUNNING AT 75 ML/HR. HIDALGO CATH PRESENT, DRAINING WELL, 500 ML OF CLEAR YELLOW URINE EMPTIED. SAFETY MEASURES IN PLACE AND PATIENT'S NEEDS MET. BED LOCKED, ALARM ON, SIDE RAILS X2, HOB ELEVATED, CALL LIGHT WITHIN REACH. WILL ENDORSE TO DAY SHIFT NURSE PLAN OF CARE.
[2020-01-08 07:53] LABS: BASOPHILS % (AUTO) 0.2 % (0.0-2.0); HEMATOCRIT 30 % (39-51); HEMOGLOBIN 9.9 g/dL (13.5-17.5); LYMPHOCYTES # (AUTO) 0.9 /CMM (0.8-4.8); LYMPHOCYTES % (AUTO) 7.9 % (20.0-44.0); MEAN CORPUSCULAR HGB CONC 33 g/dl (31.0-36.0); MEAN CORPUSCULAR VOLUME 95 fL (80-96); MONOCYTES # (AUTO) 1.3 /CMM (0.1-1.30); MONOCYTES % (AUTO) 10.9 % (2.0-12.0); NEUTROPHILS # (AUTO) 9.4 /CMM (1.8-8.9); PLATELET COUNT (AUTO) 240 /CMM (150-450); RED BLOOD CELL COUNT(AUTO) 3.13 MIL/uL (4.5-6.0); WHITE BLOOD COUNT (AUTO) 11.7 K/uL (4.3-11.0)
[2020-01-08 08:00] VITALS: BP 128/76
[2020-01-08 08:28] LABS: ALBUMIN 3.2 g/dL (3.4-5.0); BILIRUBIN,TOTAL 0.7 mg/dL (0.2-1.0); CALCIUM, SERUM 8.3 mg/dL (8.5-10.1); MAGNESIUM 1.5 mg/dL (1.8-2.4); PHOSPHORUS 2.6 mg/dL (2.5-4.9); TOTAL PROTEIN, SERUM 6.8 g/dL (6.4-8.2)
[2020-01-08] MEDS: HEPARIN SODIUM, PORCINE 5000 UNITS/1 ML VIAL SQ SCH (09:00)
[2020-01-08] MEDS: DOCUSATE SODIUM 100 MG CAPSULE PO SCH (09:11)
[2020-01-08] MEDS: AMLODIPINE BESYLATE 10 MG TABLET PO SCH (09:11)
[2020-01-08] MEDS: PANTOPRAZOLE 40 MG VIAL IV SCH (09:11)
[2020-01-08] MEDS ORDERED: Magnesium 1GM/D5W 100ML PREMIX 100 ML IV SCH ×2 (09:22→11:00)
--- NOTE | 2020-01-08 09:23 | NUR ---
ms rn notes noted patient to have heparin to be given at 0900 and lovenox at 1200 held heparin will clarify orders.
[2020-01-08] MEDS: PANTOPRAZOLE 40 MG TABLET.DR PO SCH (11:07)
[2020-01-08] MEDS: ENOXAPARIN SODIUM 40 MG/0.4 ML DISP.SYRIN SQ SCH (12:29)
[2020-01-08 16:00] VITALS: BP 146/85
[2020-01-08] MEDS: ACETAMINOPHEN 325 MG TABLET PO PRN ×2 (16:45→21:56)
--- NOTE | 2020-01-08 19:05 | NUR ---
MS RN NOTES PATIENT IN BED RESTING NO SOB OR ACUTE DISTRESS NOTED. NO ACUTE CHANGES NOTED. ALL DUE MEDICATIONS ADMINISTERED. ALL NEEDS MET. PATIENT WAS NOTED WITH TEMP OF 102.3 TYLENOL GIVEN RECHECKED TEMP AFTER TYLENOL AND WAS NOTED 98.3. BED IN LOW LOCKED POSITION. CALL LIGHT WITHIN REACH. WILL ENDORSE CARE TO PM SHIFT.
--- NOTE | 2020-01-08 19:35 | NUR ---
MS RN OPENING NOTES PATIENT AWAKE IN BED. A/OX3. ABLE TO VERBALIZE NEEDS. ON RA. NO S/S OF ACUTE RESPIRATORY DISTRESS OR C/O PAIN AT THIS TIME. RIGHT LEG IMMOBILIZER PRESENT; PER DAY SHIFT RN, PATIENT REFUSES ABDUCTION PILLOW. DRESSING ON RIGHT HIP DRY AND INTACT. IV PRESENT ON RIGHT AC, SIZE 20, INTACT & PATENT WITH NS RUNNING AT 75 ML/HR. HIDALGO CATH PRESENT, DRAINING WELL. SAFETY MEASURES IN PLACE AND PATIENT'S NEEDS MET. BED LOCKED, ALARM ON, SIDE RAILS X2, HOB ELEVATED, CALL LIGHT WITHIN REACH. WILL CONTINUE TO MONITOR
[2020-01-08 20:00] VITALS: BP 131/81
[2020-01-08] MEDS: TAMSULOSIN 0.4 MG CAP.SR.24H PO SCH (21:53)
--- NOTE | 2020-01-08 21:56 | NUR ---
MS RN NOTES PATIENT'S TEMP 100.6. ADMINISTERED PRN TYLENOL 650 MG AND APPLIED COOLING MEASURES. WILL CONTINUE TO MONITOR.
[2020-01-09 00:53] VITALS: BP 147/92
[2020-01-09] MEDS: MORPHINE SULFATE INJ 2 MG/ML DISP.SYRIN IV PRN (00:56)
--- NOTE | 2020-01-09 02:00 | NUR ---
MS RN NOTES PATIENT'S TEMP 103.3. NOTIFIED PRODUCER ASSISTANT MARC JACOBO. ORDERS GIVEN TO COLLECT BLOOD AND URINE CULTURES; NO COVID SWAB AT THIS TIME; TO F/U WITH AM . ORDERS CARRIED OUT.
[2020-01-09 03:11] LABS: APPEARANCE,URINE SL CLOUDY (CLEAR); BILIRUBIN,URINE NEGATIVE (NEGATIVE); BLOOD, URINE SMALL Ery/uL (NEGATIVE); COLOR,URINE YELLOW (YELLOW); KETONES,URINE NEGATIVE (NEGATIVE); LEUKOCYTE ESTERASE ,URINE TRACE (NEGATIVE); NITRITE, URINE NEGATIVE (NEGATIVE); PH,URINE 5.5 (5.0-8.0); PROTEIN,URINE 30 mg/dl (NEGATIVE); UGLUCOSE NEGATIVE (NEGATIVE); UROBILINOGEN,URINE 0.2 EU/dL (0.2)
[2020-01-09 03:15] LABS: BACTERIA,URINE Few /HPF (None Seen); SQUAMOUS EPITHELIAL CELL,UR Rare /HPF (None Seen); WBC,URINE 51-80 /HPF (0-3)
[2020-01-09 03:24] LABS: CREATININE, URINE 91.3 MG/DL (30.0-125.0); URINE TOTAL PROTEIN 96.4 mg/dL (0-11.9)
[2020-01-09 03:38] LABS: EOSINOPHIL,URINE None Seen
--- NOTE | 2020-01-09 04:10 | NUR ---
MS RN NOTES PATIENT'S TEMP 100.2. ADMINISTERED PRN TYLENOL 650 MG PO. COOLING MEASURES IN PLACE. WILL CONTINUE TO MONITOR.
[2020-01-09] MEDS: ACETAMINOPHEN 325 MG TABLET PO PRN (04:12)
--- NOTE | 2020-01-09 06:00 | NUR ---
MS RN NOTES PATIENT'S TEMP 102. COOLING MEASURES IN PLACE. WILL CONTINUE TO MONITOR
[2020-01-09 06:11] LABS: PTH, INTACT 55 pg/mL (15-65)
[2020-01-09 07:08] LABS: ALBUMIN 3.1 g/dL (3.4-5.0); CALCIUM, SERUM 8.4 mg/dL (8.5-10.1); MAGNESIUM 1.8 mg/dL (1.8-2.4); PHOSPHORUS 2.5 mg/dL (2.5-4.9); TOTAL PROTEIN, SERUM 6.9 g/dL (6.4-8.2)
[2020-01-09 07:12] LABS: BASOPHILS % (AUTO) 0.3 % (0.0-2.0); EOSINOPHILS % (AUTO) 1.9 % (0.0-6.0); HEMATOCRIT 32 % (39-51); HEMOGLOBIN 10.5 g/dL (13.5-17.5); LYMPHOCYTES % (AUTO) 7.8 % (20.0-44.0); MEAN CORPUSCULAR HGB CONC 33 g/dl (31.0-36.0); MEAN CORPUSCULAR VOLUME 95 fL (80-96); MONOCYTES # (AUTO) 1.2 /CMM (0.1-1.30); MONOCYTES % (AUTO) 8.6 % (2.0-12.0); NEUTROPHILS # (AUTO) 10.9 /CMM (1.8-8.9); NEUTROPHILS % (AUTO) 81.4 % (43.0-81.0); PLATELET COUNT (AUTO) 215 /CMM (150-450); RED BLOOD CELL COUNT(AUTO) 3.33 MIL/uL (4.5-6.0); WHITE BLOOD COUNT (AUTO) 13.3 K/uL (4.3-11.0)
--- NOTE | 2020-01-09 07:12 | NUR ---
MS RN CLOSING NOTES PATIENT AWAKE AND WATCHING TV IN BED. A/OX3. NO S/S OF ACUTE RESPIRATORY DISTRESS OR C/O PAIN AT THIS TIME. RIGHT LEG IMMOBILIZER REMAINS IN PLACE. IV PRESENT ON LEFT AC, SIZE 22, INTACT & PATENT WITH NS RUNNING AT 75 ML/HR. HIDALGO CATH PRESENT, DRAINING WELL. COOLING MEASURES REMAIN IN PLACE FOR FEVER. SAFETY MEASURES IN PLACE AND PATIENT'S NEEDS MET. BED LOCKED, ALARM ON, SIDE RAILS X2, HOB ELEVATED, CALL LIGHT WITHIN REACH. WILL ENDORSE TO DAY SHIFT NURSE PLAN OF CARE.
--- NOTE | 2020-01-09 07:12 | NUR ---
MS RN OPENING NOTES RECEIVED PT AWAKE IN BED. A/OX3. ABLE TO MAKE NEEDS KNOWN. PT RUNNING A TEMP OF 100.2 AND PLACED ON COOLING MEASURES. ICE BAGS UNDER ARM, AND PT UNCOVERED. PT ON RA. NO S/S OF ANY ACUTE DISTRESS NOTED. NO C/O PAIN AT THIS TIME. RIGHT LEG IMMOBILIZER PRESENT. PER CANE PILER RNVALDEZ, PT REFUSES ABDUCTION PILLOW. DRESSING ON RIGHT HIP IN PLACE, CLEAN, DRY AND INTACT. IV ACCESS TO LAC G#22, INTACT, PATENT AND INFUSING WITH NS RUNNING AT 75 ML/HR. HIDALGO CATHETER IN PLACE, DRAINING TO GRAVITY CLEAR YELLOW URINE OUTPUT. HOB ELEVATED TO SEMI FOWLERS POSITION, BED IN LOWEST LOCKED POSITION, BED ALARM ON, SIDE RAILS UP, CALL LIGHT WITHIN REACH. WILL CONTINUE TO MONITOR
--- NOTE | 2020-01-09 08:00 | NUR ---
REASSESS PATIENT'S TEMP AFTER COOLING MEASURES IN PLACE. TEMP IS NOW AT 98.7. WILL CONTINUE TO MONITOR
[2020-01-09 08:13] VITALS: BP 149/84
[2020-01-09] MEDS: DOCUSATE SODIUM 100 MG CAPSULE PO SCH (08:51)
[2020-01-09] MEDS: PANTOPRAZOLE 40 MG TABLET.DR PO SCH (08:51)
[2020-01-09] MEDS: AMLODIPINE BESYLATE 10 MG TABLET PO SCH (08:52)
[2020-01-09] MEDS: ENOXAPARIN SODIUM 40 MG/0.4 ML DISP.SYRIN SQ SCH (08:53)
[2020-01-09] MEDS: HYDROCODONE/APAP 5/325MG 1 EACH TABLET PO PRN (09:47)
--- NOTE | 2020-01-09 09:50 | NUR ---
PATIENT DUE FOR PHYSICAL THERAPY. PHYSICAL THERAPIST PRIYANKA, PLACED PHYSICAL THERAPY ON HOLD DUE TO PATIENT HAVING ELEVATED TEMP AND PLACE ON DROPLET ISOLATIONS PENDING MD ORDERS FOR COVID-19 SWAP
[2020-01-09 10:04] VITALS: BP 149/84
[2020-01-09 11:06] LABS: *SPE A/G RATIO 1.1 (0.7-1.7); *SPE ALBUMIN 3.3 g/dL (2.9-4.4); *SPE ALPHA-1-GLOBULIN 0.3 g/dL (0.0-0.4); *SPE ALPHA-2-GLOBULIN 0.7 g/dL (0.4-1.0); *SPE BETA GLOBULIN 0.8 g/dL (0.7-1.3); *SPE M-SPIKE Not Observed g/dL (Not Observed); *SPEGAMMA GLOBULIN 1.1 g/dL (0.4-1.8)
[2020-01-09] MEDS: hydrALAZINE HCL 50 MG TABLET PO SCH ×2 (13:37→17:57)
--- NOTE | 2020-01-09 13:59 | NUR ---
DR PARKINSON MADE AWARE OF PATIENTS' ELEVATED TEMPERATURE AND ORDER WAS COVID-19 RECEIVED. COVID-19 SWAB COLLECTED AT 1359 PER ORDER. WILL CONTINUE TO MONITOR
--- NOTE | 2020-01-09 16:00 | NUR ---
PT TEMP OF 100.0. COOLING MEASURES IN PLACE. ICE BAGS PLACED UNDER ARM, COOL WASH CLOTHES PLACED ON FACE AND ABDOMEN. BLANKETS REMOVED. ROOM KEPT COOL, WILL CONTINUE TO MONITOR.
--- NOTE | 2020-01-09 16:45 | NUR ---
REASSESS PATIENTS TEMP, TRENDING DOWN NOW FROM 100.0 TO 98.4. WILL CONTINUE TO MONITOR
[2020-01-09] MEDS ORDERED: LEVOFLOXACIN (500MG) 500 MG TABLET PO SCH (17:00)
[2020-01-09 17:19] VITALS: BP 142/78
--- NOTE | 2020-01-09 19:00 | NUR ---
MS RN CLOSING NOTES PT AWAKE IN BED. STABLE AT THIS TIME. NO S/S OF ANY ACUTE DISTRESS NOTED. NO C/O PAIN AT THIS TIME. RIGHT LEG IMMOBILIZER PRESENT. ABDUCTION PILLOW IN PLACE. DRESSING ON RIGHT HIP IN PLACE, CLEAN, DRY AND INTACT. IV ACCESS TO LAC G#22, INTACT, PATENT. HIDALGO CATHETER IN PLACE, DRAINING TO GRAVITY CLEAR YELLOW URINE OUTPUT. HOB ELEVATED TO SEMI FOWLERS POSITION, BED IN LOWEST LOCKED POSITION, BED ALARM ON, SIDE RAILS UP, CALL LIGHT WITHIN REACH. WILL ENDORSE TO NIGHT NURSE FOR ANTONIO.
--- NOTE | 2020-01-09 19:46 | NUR ---
MS/RN OPENING NOTES RECEIVED PATIENT IN BED, HOB ELEVATED, RESPIRATIONS EVEN AND UNLABORED, SKIN WARM TO TOUCH. PATIENT PROVIDED AND OFFERED FLUIDS, RIGHT HAND MORE STRONGER. KEPT LEGS FEET APART. DUE TO SURGERY. IV SITE LEFT AC PATENT. BED LOCKED, CALL LIGHTS WITHIN REACH. WILL MONITOR. ON ISOLATION PRECAUTION TO RULE OUT COVID. COVID RESULT STILL PENDING. RECEIVED ENDORSMENT FROM AM RN FOR ANTONIO. WILL MONITOR.
[2020-01-09 20:00] VITALS: BP 115/68
[2020-01-09 20:50] VITALS: BP 115/68
[2020-01-09] MEDS: TAMSULOSIN 0.4 MG CAP.SR.24H PO SCH (21:21)
--- NOTE | 2020-01-10 06:40 | NUR ---
326-1MS/RN CLOSING NOTES PATIENT ABLE TO SLEEP DURING THE SHIP , RESPIRATIONS EVEN AND UNLABORED, ATTENDED TO ALL NEEDS. ON ISOLATION TO RULE OUT COVID, HAND HYGIENE AND WITH PROPER PPE .WILL ENDORSE TO AM RN FOR ANTONIO.
--- NOTE | 2020-01-10 07:30 | NUR ---
RN MS NOTES PT IN BED, AWAKE, ALERT AND ORIENTED, NO COMPLAINT OF PAIN OR ANY DISCOMFORT, RESPIRATIONS NORMAL, CALL LIGHT WITHIN REACH, ASSISTED WITH MEALS, NEEDS ATTENDED.
[2020-01-10 08:25] LABS: BASOPHILS % (AUTO) 0.1 % (0.0-2.0); CALCIUM, SERUM 8.4 mg/dL (8.5-10.1); CREATININE 2.1 mg/dL (0.6-1.3); HEMATOCRIT 29 % (39-51); HEMOGLOBIN 9.7 g/dL (13.5-17.5); LYMPHOCYTES # (AUTO) 0.9 /CMM (0.8-4.8); LYMPHOCYTES % (AUTO) 7.9 % (20.0-44.0); MAGNESIUM 1.9 mg/dL (1.8-2.4); MEAN CORPUSCULAR HGB CONC 33 g/dl (31.0-36.0); MEAN CORPUSCULAR VOLUME 95 fL (80-96); MONOCYTES # (AUTO) 0.9 /CMM (0.1-1.30); MONOCYTES % (AUTO) 7.2 % (2.0-12.0); NEUTROPHILS # (AUTO) 9.5 /CMM (1.8-8.9); NEUTROPHILS % (AUTO) 79.8 % (43.0-81.0); PHOSPHORUS 2.6 mg/dL (2.5-4.9); PLATELET COUNT (AUTO) 219 /CMM (150-450); POTASSIUM 3.8 mmol/L (3.5-5.1); RED BLOOD CELL COUNT(AUTO) 3.06 MIL/uL (4.5-6.0); WHITE BLOOD COUNT (AUTO) 11.9 K/uL (4.3-11.0)
[2020-01-10 08:31] VITALS: BP 116/70
[2020-01-10] MEDS: hydrALAZINE HCL 50 MG TABLET PO SCH ×3 (08:56→17:13)
[2020-01-10] MEDS: DOCUSATE SODIUM 100 MG CAPSULE PO SCH (08:56)
[2020-01-10] MEDS: PANTOPRAZOLE 40 MG TABLET.DR PO SCH (08:56)
[2020-01-10] MEDS: ENOXAPARIN SODIUM 40 MG/0.4 ML DISP.SYRIN SQ SCH (08:59)
[2020-01-10] MEDS: AMLODIPINE BESYLATE 10 MG TABLET PO SCH (09:00)
[2020-01-10] MEDS: NITROFURANTOIN/NITROFURAN MAC 100 MG CAPSULE PO SCH ×2 (13:07→21:06)
--- NOTE | 2020-01-10 13:16 | NUR ---
RN MS NOTES PT IN BED, AWAKE, ALERT AND ORIENTED, EATING LUNCH, NO COMPLAINT AT THIS TIME, ASSISTED WITH NEEDS, DUE MEDS GIVEN ORDERED.
[2020-01-10] MEDS ORDERED: ENOX40DI SQ (13:38)
[2020-01-10] MEDS ORDERED: HYDR-3972 PO (13:38)
[2020-01-10] MEDS ORDERED: HYDR-4077 PO (13:38)
[2020-01-10] MEDS ORDERED: NITR100C15 PO (13:38)
[2020-01-10] MEDS ORDERED: TEMA15CA5 PO (13:38)
[2020-01-10 16:08] VITALS: BP 131/79
[2020-01-10] MEDS: HYDROCODONE/APAP 5/325MG 1 EACH TABLET PO PRN (17:21)
--- NOTE | 2020-01-10 18:16 | NUR ---
RN MS NOTES PT IN BED, AWAKE, ALERT AND ORIENTED, PAIN MEDS GIVEN FOR PAIN MANAGEMENT, DRESSING TO RIGHT HIP INTACT AND CLEAN, ABDUCTION PILLOW IN PLACE, F/C DRAINING WELL WITH CLEAR, YELLOW URINE, ASSISTED WITH MEALS, PM CARE PROVIDED, ALL NEEDS ATTENDED.
--- NOTE | 2020-01-10 19:33 | NUR ---
MS RN OPENING NOTES PATIENT RECEIVED RESTING IN BED A/O X 3. ON 2L OF O2 VIA NC WITH BREATHING EVEN AND UNLABORED, NO SOB NOTED. NO SIGNS OF ACUTE DISTRESS, NO COMPLAINTS OF PAIN OR DISCOMFORT NOTED. HIDALGO CATH IN PLACE AND NOTED. IV ON L AC #22 SL. SAFETY PRECAUTIONS IN PLACE WITH BED IN LOWEST POSITION, CALL LIGHT WITHIN REACH, BREAKS ON, SIDE RAILS UP. WILL CONTINUE TO MONITOR THROUGHOUT THE SHIFT.
[2020-01-10 20:00] VITALS: BP 127/78
[2020-01-10 20:51] VITALS: BP 127/78
[2020-01-10] MEDS: TAMSULOSIN 0.4 MG CAP.SR.24H PO SCH (21:05)
--- NOTE | 2020-01-11 06:44 | NUR ---
MS RN CLOSING NOTES PATIENT RESTING IN BED A/O X 3. ON 2L OF O2 VIA NC WITH BREATHING EVEN AND UNLABORED, NO SOB NOTED. NO SIGNS OF ACUTE DISTRESS, NO COMPLAINTS OF PAIN OR DISCOMFORT NOTED. HIDALGO CATH IN PLACE AND NOTED CLEAR YELLOW URINE NOTED. IV ON L AC #22 SL. SAFETY PRECAUTIONS IN PLACE WITH BED IN LOWEST POSITION, CALL LIGHT WITHIN REACH, BREAKS ON, SIDE RAILS UP. ALL NEEDS ATTENDED TO, PATIENT KEPT CLEAN AND DRY. WILL ENDORSE TO ONCOMING SHIFT ABOUT ANTONIO.
[2020-01-11 07:35] LABS: BASOPHILS % (AUTO) 0.2 % (0.0-2.0); EOSINOPHILS % (AUTO) 6.9 % (0.0-6.0); HEMATOCRIT 27 % (39-51); LYMPHOCYTES # (AUTO) 0.8 /CMM (0.8-4.8); MEAN CORPUSCULAR HGB CONC 34 g/dl (31.0-36.0); MEAN CORPUSCULAR VOLUME 95 fL (80-96); MONOCYTES # (AUTO) 0.8 /CMM (0.1-1.30); MONOCYTES % (AUTO) 8.5 % (2.0-12.0); NEUTROPHILS # (AUTO) 7.2 /CMM (1.8-8.9); NEUTROPHILS % (AUTO) 76.4 % (43.0-81.0); PLATELET COUNT (AUTO) 252 /CMM (150-450); RED BLOOD CELL COUNT(AUTO) 2.82 MIL/uL (4.5-6.0); WHITE BLOOD COUNT (AUTO) 9.4 K/uL (4.3-11.0)
[2020-01-11 07:54] LABS: CALCIUM, SERUM 8.3 mg/dL (8.5-10.1); MAGNESIUM 1.8 mg/dL (1.8-2.4); PHOSPHORUS 3.1 mg/dL (2.5-4.9); POTASSIUM 3.6 mmol/L (3.5-5.1)
[2020-01-11 08:00] VITALS: BP 125/78
[2020-01-11] MEDS: DOCUSATE SODIUM 100 MG CAPSULE PO SCH (09:49)
[2020-01-11] MEDS: hydrALAZINE HCL 50 MG TABLET PO SCH ×2 (09:49→13:33)
[2020-01-11] MEDS: AMLODIPINE BESYLATE 10 MG TABLET PO SCH (09:49)
[2020-01-11] MEDS: PANTOPRAZOLE 40 MG TABLET.DR PO SCH (09:49)
[2020-01-11] MEDS: ENOXAPARIN SODIUM 40 MG/0.4 ML DISP.SYRIN SQ SCH (09:50)
[2020-01-11] MEDS: NITROFURANTOIN/NITROFURAN MAC 100 MG CAPSULE PO SCH (09:58)
--- NOTE | 2020-01-11 11:02 | NUR ---
F/C d/c prior discharge. Patient voided.
--- NOTE | 2020-01-11 13:09 | NUR ---
Report called to Shiva HUITRON ( [facility] )
[2020-01-11 13:33] VITALS: BP 130/81
--- NOTE | 2020-01-11 14:25 | NUR ---
Patient cleared for transfer to acute rehab . Patient alert and oriented x2-3 with episodes of forgetfulness. Breathing unlabored and even on 2l Oxygen via NC. VS are stable and within baseline. Patient negative for COVID -19 . All needs attended prior discharge. Patient denies pain and refused to be medicated before transfer. L hip surgical dressing intact and patent. Patient able to stand up with PT.IV line removed and ID wrist removed .Patient refused skin inspection prior discharge. D/C instructions provided to patient and pt verbalized understanding. D/C paper and belongings list sighed by 2 nurses due to patient cannot see without glasses and dont have them with him. All belongings with the patient. Patient picked up by ambulance.
== END 2020-01-11 15:16 | DRG 469 ==
LOC: ER 22:31 → MED 01-07 01:01
PROVIDERS: ADMIT Internal Medicine; ATTEND Nurse Practitioner Acute Care
PROC: 0SRR0JZ Replacement of Right Hip Joint, Femoral Surface with Synthetic Substitute, Open Approach (ICD-10-PCS; principal; 2020-01-07)
DX: S72.011A Unspecified intracapsular fracture of right femur, initial encounter for closed fracture (principal); N17.0 Acute kidney failure with tubular necrosis; N13.8 Other obstructive and reflux uropathy; N13.6 Pyonephrosis; I13.0 Hypertensive heart and chronic kidney disease with heart failure and stage 1 through stage 4 chronic kidney disease, or unspecified chronic kidney disease; F03.90 Unspecified dementia, unspecified severity, without behavioral disturbance, psychotic disturbance, mood disturbance, and anxiety; D63.1 Anemia in chronic kidney disease; N40.1 Benign prostatic hyperplasia with lower urinary tract symptoms; N18.3 Chronic kidney disease, stage 3 (moderate); I50.9 Heart failure, unspecified; E11.22 Type 2 diabetes mellitus with diabetic chronic kidney disease; E11.51 Type 2 diabetes mellitus with diabetic peripheral angiopathy without gangrene; I25.10 Atherosclerotic heart disease of native coronary artery without angina pectoris; E61.1 Iron deficiency; Z86.73 Personal history of transient ischemic attack (TIA), and cerebral infarction without residual deficits; W18.30XA Fall on same level, unspecified, initial encounter; Y92.89 Other specified places as the place of occurrence of the external cause
CPT/HCPCS: 36415; 71045-TC; 72170-TC; 73502; 73552; 76770-TC; 80048-TC; 80053-TC; 80061-TC; 81000-TC; 82550-TC; 82553; 82570-TC; 82728-TC; 83540-TC; 83735-TC; 83970; 84100-TC; 84155; 84155-TC; 84165; 84300-TC; 84439-TC; 84443-TC; 84484-TC; 85025-TC; 85730-TC; 86850-TC; 87040-TC; 87081-TC; 87086-TC; 87186-TC; 88305-TC; 88311-TC; 93307-TC; 97110-TC; 97112-TC; 97530-TC; A4217; A6209; C1776; C9113; G0378; J0360; J1100; J1644; J1650; J2270; J2405; J3010; J3475; J3490; J7030; J7060; L1830

== ENCOUNTER 2020-08-03 23:44 | Inpatient (IN) | payer MEDICARE, OTHER ==
[~2020-08-03] VITALS: Ht 170.2 cm; Wt 46.3 kg
[~2020-08-03 23:44] MED LIST changes: +CRAN425C6 PO; +CYAN-51 PO; +ENOX40DI SQ; +HYDR-3972 PO; +HYDR-4077 PO; +NITR100C15 PO; +PANT40TA2 PO; +TEMA15CA5 PO
--- NOTE | 2020-08-04 01:08 | NUR ---
PT RUPERTO FROM [facility] FOR FLU LIKE SYMPTOMS. PT IS MD DAVIS'S PT. PT PLACED IN BED 7 ON BORDER INSPECTOR AND PULSE OX. PT ON 2L NORMALLY, SAT 98%. UPON ASSESSMENT NOTED HYPOTENSIVE, MD AT BEDSIDE, AWAITING EVAL. WILL CONTINUE TO MONITOR. NO SKIN ISSUES NOTED, RR EVEN, AND UNLABORED.
--- NOTE | 2020-08-04 01:26 | NUR ---
FRANCISCOID SWABBED, SENT TO LAB.
[2020-08-04] MEDS ORDERED: IV NS 0.9% 1,000 ML IV ONE (01:30)
--- NOTE | 2020-08-04 01:45 | NUR ---
COVID PCR SWABBED, INF, SENT TO LAB.
--- NOTE | 2020-08-04 01:46 | NUR ---
LINE INITIATED, BLOOD WORK SENT TO LAB. PT HYPOTENSIVE. AWARE.
[2020-08-04 01:49] LABS: BASOPHILS # (AUTO) 0.3 /CMM (0.0-0.2); EOSINOPHILS % (AUTO) 0.1 % (0.0-6.0); HEMATOCRIT 35 % (39-51); HEMOGLOBIN 11.2 g/dL (13.5-17.5); LYMPHOCYTES # (AUTO) 0.7 /CMM (0.8-4.8); LYMPHOCYTES % (AUTO) 16.9 % (20.0-44.0); MEAN CORPUSCULAR HGB CONC 32 g/dl (31.0-36.0); MEAN CORPUSCULAR VOLUME 98 fL (80-96); MONOCYTES # (AUTO) 0.5 /CMM (0.1-1.30); MONOCYTES % (AUTO) 12.4 % (2.0-12.0); NEUTROPHILS # (AUTO) 2.8 /CMM (1.8-8.9); NEUTROPHILS % (AUTO) 63.7 % (43.0-81.0); PLATELET COUNT (AUTO) 387 /CMM (150-450); RED BLOOD CELL COUNT(AUTO) 3.57 MIL/uL (4.5-6.0); WHITE BLOOD COUNT (AUTO) 4.4 K/uL (4.3-11.0)
[2020-08-04 01:50] LABS: BASOPHILS % (AUTO) 6.9 % (0.0-2.0)
[2020-08-04 02:19] LABS: CALCIUM, SERUM 9.3 mg/dL (8.5-10.1); CARBON DIOXIDE 23 mmol/L (21-32); CHLORIDE 103 mmol/L (98-107); CREATININE 2.5 mg/dL (0.6-1.3); GLUCOSE 111 mg/dL (74-106); POTASSIUM 4.9 mmol/L (3.5-5.1); SODIUM SERUM 137 mmol/L (136-145); UREA NITROGEN, BLOOD 36 mg/dL (7-18)
--- NOTE | 2020-08-04 02:19 | NUR ---
covid negative per lab
[2020-08-04 02:32] LABS: ALANINE AMINOTRANSFERASE 21 U/L (12-78); ALBUMIN 3.1 g/dL (3.4-5.0); ALKALINE PHOSPHATASE 64 U/L (46-116); ASPARTATE AMINOTRANSFERASE 26 U/L (15-37); BILIRUBIN,TOTAL 0.2 mg/dL (0.2-1.0); TOTAL PROTEIN, SERUM 8.3 g/dL (6.4-8.2)
[2020-08-04 02:34] LABS: C-REACTIVE PROTEIN 3.2 mg/dL (0.0-0.9); CREATINE KINASE, TOTAL 20 U/L (39-308); FERRITIN 582 ng/mL (8-388)
[2020-08-04] MEDS ORDERED: IV NS 0.9% 1,000 ML IV STA (02:53)
--- NOTE | 2020-08-04 03:22 | NUR ---
called rn sup for tele bed
--- NOTE | 2020-08-04 04:12 | NUR ---
PT RESTING COMFORTABLY. VSS. ON MONITOR AND PULSE OX.
--- NOTE | 2020-08-04 05:35 | NUR ---
CALLED RN SUP, BED WILL BE ASSIGEND AFTER 729.
--- NOTE | 2020-08-04 06:55 | NUR ---
called rn sup, no assigned beds at this time.
--- NOTE | 2020-08-04 07:37 | NUR ---
PT IN BED AWAKE AND ALERT. VERBALLY RESPONSIVE. NO DISTRESS NOTED.
--- NOTE | 2020-08-04 08:00 | NUR ---
Tierney latif in [facility] - 08/04/20 at 0806 by RODO 109
[2020-08-04] MEDS ORDERED: DIPH25CA51 PO (08:01)
[2020-08-04] MEDS ORDERED: MAGN400O6 PO (08:01)
[2020-08-04] MEDS ORDERED: CYAN500T64 PO (08:01)
[2020-08-04] MEDS ORDERED: AMLO-213 PO (08:01)
[2020-08-04] MEDS ORDERED: MULT-16 PO (08:01)
[2020-08-04] MEDS ORDERED: HYDR-4077 PO (08:01)
[2020-08-04] MEDS ORDERED: HYDR-4384 PO (08:01)
[2020-08-04] MEDS ORDERED: SENN-261 PO (08:01)
[2020-08-04] MEDS ORDERED: CRAN200C PO (08:01)
[2020-08-04] MEDS ORDERED: FOLI0.4T2 PO (08:01)
[2020-08-04] MEDS ORDERED: CHOL100040 PO (08:01)
[2020-08-04] MEDS ORDERED: LISI-603 PO (08:01)
[2020-08-04] MEDS ORDERED: ASPI-1420 PO (08:01)
[2020-08-04] MEDS ORDERED: ZINC50TA65 PO (08:01)
--- NOTE | 2020-08-04 09:37 | NUR ---
REPORT GIVEN TO ISAAK HUITRON FOR ANTONIO
--- NOTE | 2020-08-04 09:49 | NUR ---
PT TRANSPORTED TO UNIT ON [facility] EMT AND RN AT BEDSIDE WITH ACLS PROTOCOL
--- NOTE | 2020-08-04 10:00 | NUR ---
RN NOTE PT RECEIVED TO THE UNIT VIA LORIE, A/O X2, ON 2 L VIA NC SATING 95%, PT HAS UNLABORED BREATHING. SAFETY MEASURES IN PLACE.
[2020-08-04 12:00] VITALS: BP 107/64
[2020-08-04] MEDS ORDERED: MAGNESIUM HYDROXIDE 30 ML UDC PO PRN (12:00)
[2020-08-04] MEDS ORDERED: HYDROCODONE/APAP 5/325MG TABLET PO PRN (12:00)
[2020-08-04] MEDS ORDERED: CLINDAMYCIN 600 MG in IV D5W 50 ML IV SCH (13:00)
[2020-08-04] MEDS ORDERED: ACETAMINOPHEN 325 MG TABLET PO PRN (13:00)
[2020-08-04] MEDS ORDERED: AZITHROMYCIN 500 MG in IV D5W 250 ML IV SCH (13:00)
[2020-08-04] MEDS ORDERED: ONDANSETRON HCL/PF 4 MG/2 ML VIAL IV PRN (13:00)
[2020-08-04] MEDS: CLINDAMYCIN 600 MG in IV D5W 50 ML IV SCH ×2 (13:38→21:26)
[2020-08-04] MEDS: ENOXAPARIN SODIUM 30 MG/0.3 ML DISP.SYRIN SQ SCH (13:47)
[2020-08-04] MEDS: hydrALAZINE HCL 50 MG TABLET PO SCH ×2 (13:49→18:11)
[2020-08-04] MEDS: IV D5/0.45 NACL 1,000 ML IV SCH ×2 (13:53→22:00)
[2020-08-04 16:00] VITALS: BP 111/68
[2020-08-04] MEDS: DOCUSATE SODIUM 100 MG CAPSULE PO SCH (18:10)
--- NOTE | 2020-08-04 19:06 | NUR ---
RN NOTE NO ACUTE CHANGES DURING MY SHIFT, REPORT GIVEN TO INCOMING SHIFT FOR ANTONIO.
--- NOTE | 2020-08-04 19:50 | NUR ---
GEOLOGY TEACHER NOTE: PATIENT RESTING IN BED, NO ACUTE DISTRESS NOTED. BREATHING EVEN AND UNLABORED, NO SOB NOTED. IV TO LAC IN PLACE. ISOLATION PRECAUTION OBSERVED. BED LOCKED AND IN LOWEST POSITION, CALL LIGHT IN REACH. WILL CONTINUE TO MONITOR.
[2020-08-04] MEDS: SENNOSIDES 8.6 MG TABLET PO SCH (21:27)
[2020-08-04] MEDS: TAMSULOSIN 0.4 MG CAP.SR.24H PO SCH (21:27)
--- NOTE | 2020-08-05 03:20 | NUR ---
SUPERVISOR MOLD YARD NOTE: PATIENT SLEEPING IN BED, NO ACUTE DISTRESS NOTED. BREATHING EVEN AND UNLABORED, NO SOB NOTED. IV TO LAC IN PLACE. ISOLATION PRECAUTION OBSERVED. BED LOCKED AND IN LOWEST POSITION, CALL LIGHT IN REACH. WILL CONTINUE TO MONITOR.
[2020-08-05] MEDS: CLINDAMYCIN 600 MG in IV D5W 50 ML IV SCH ×3 (05:01→20:54)
[2020-08-05 06:20] LABS: BASOPHILS % (AUTO) 0.3 % (0.0-2.0); EOSINOPHILS % (AUTO) 0.3 % (0.0-6.0); HEMATOCRIT 29 % (39-51); HEMOGLOBIN 9.7 g/dL (13.5-17.5); LYMPHOCYTES # (AUTO) 1.4 /CMM (0.8-4.8); MEAN CORPUSCULAR HGB CONC 34 g/dl (31.0-36.0); MEAN CORPUSCULAR VOLUME 97 fL (80-96); MONOCYTES # (AUTO) 0.4 /CMM (0.1-1.30); MONOCYTES % (AUTO) 10.9 % (2.0-12.0); NEUTROPHILS # (AUTO) 1.8 /CMM (1.8-8.9); NEUTROPHILS % (AUTO) 49.5 % (43.0-81.0); PLATELET COUNT (AUTO) 298 /CMM (150-450); WHITE BLOOD COUNT (AUTO) 3.7 K/uL (4.3-11.0)
--- NOTE | 2020-08-05 06:30 | NUR ---
CHAIN MAKER NOTE: PATIENT RESTING IN BED, NO ACUTE DISTRESS NOTED. BREATHING EVEN AND UNLABORED, NO SOB NOTED. IV TO LAC IN PLACE. ISOLATION PRECAUTION OBSERVED. BED LOCKED AND IN LOWEST POSITION, CALL LIGHT IN REACH. WILL ENDORSE TO DAY NURSE TO CONTINUE WITH PLAN OF CARE.
[2020-08-05 06:34] LABS: ALBUMIN 2.6 g/dL (3.4-5.0); BILIRUBIN,TOTAL 0.2 mg/dL (0.2-1.0); CALCIUM, SERUM 8.6 mg/dL (8.5-10.1); CREATININE 1.8 mg/dL (0.6-1.3); MAGNESIUM 1.7 mg/dL (1.8-2.4); PHOSPHORUS 3.6 mg/dL (2.5-4.9); POTASSIUM 4.2 mmol/L (3.5-5.1); TOTAL PROTEIN, SERUM 6.9 g/dL (6.4-8.2)
[2020-08-05 08:00] VITALS: BP 112/68
[2020-08-05 08:17] VITALS: BP 112/68
[2020-08-05] MEDS ORDERED: AMLODIPINE BESYLATE 10 MG TABLET PO SCH (09:00)
[2020-08-05] MEDS: ENOXAPARIN SODIUM 30 MG/0.3 ML DISP.SYRIN SQ SCH (09:00)
[2020-08-05] MEDS ORDERED: LISINOPRIL (20MG) 20 MG TABLET PO SCH (09:00)
[2020-08-05] MEDS: hydrALAZINE HCL 50 MG TABLET PO SCH ×3 (09:00→17:00)
[2020-08-05] MEDS ORDERED: Medication Not On Formulary EA (Zinc Amino Acid Chelate (Zinc) 50 MG) PO SCH (09:00)
[2020-08-05] MEDS ORDERED: Magnesium 1GM/D5W 100ML PREMIX 100 ML IV SCH (10:00)
--- NOTE | 2020-08-05 10:01 | NUR ---
PT RECEIVED FROM DES HUITRON, WILL CONTINUE CARE THIS SHIFT
[2020-08-05] MEDS: ASPIRIN EC 81 MG TABLET.DR PO SCH (10:36)
[2020-08-05] MEDS: MULTIVITAMINS,THERAGRAN 1 UDTAB TABLET PO SCH (10:37)
[2020-08-05] MEDS: FOLIC ACID 1 MG TABLET PO SCH (10:37)
[2020-08-05] MEDS: PANTOPRAZOLE 40 MG TABLET.DR PO SCH (10:44)
[2020-08-05] MEDS: IV D5/0.45 NACL 1,000 ML IV SCH ×2 (10:44→18:08)
--- NOTE | 2020-08-05 13:00 | NUR ---
HYDRALAZINE NOT GIVEN, BP 108/70
--- NOTE | 2020-08-05 17:00 | NUR ---
HYDRALAZINE AT 1700 NOT ADMIN, BP RECHECKED AT 102/60
[2020-08-05 17:02] VITALS: BP 105/69
[2020-08-05] MEDS: DOCUSATE SODIUM 100 MG CAPSULE PO SCH (18:08)
--- NOTE | 2020-08-05 19:59 | NUR ---
PT REMAINS IN BED, ALERT AND ORIENTED X 2, FORGETFUL. PT ON 2L O2 SATURATION 97-98%, NO RESPIRATORY DISTRESS OR SOB. PT ON MONITOR SHOWING SR. PT HIDALGO OUTPUT REPORTED AT 500 ML. PT LAC #20 RUNNING D5 1/2 NS AT 100 ML/HR. IV SITE HAS SOME LEAKAGE, BUT FLUSHES WELL WITH GOOD BLOOD RETURN. IV SITE REINFORCED. BED IN LOCKED LOWEST POSITION, CALL LIGHT WITHIN REACH, ALL SAFETY MEASURES IN PLACE. REPORT GIVEN TO PERLA FOR ANTONIO
[2020-08-05 20:00] VITALS: BP 113/62
[2020-08-05] MEDS: TAMSULOSIN 0.4 MG CAP.SR.24H PO SCH (21:19)
[2020-08-05] MEDS: SENNOSIDES 8.6 MG TABLET PO SCH (21:20)
[2020-08-06] VITALS: BP 93/60
[2020-08-06] MEDS: IV D5/0.45 NACL 1,000 ML IV SCH ×4 (03:36→21:50)
[2020-08-06] MEDS: CLINDAMYCIN 600 MG in IV D5W 50 ML IV SCH ×2 (05:03→13:28)
[2020-08-06 05:26] VITALS: BP 82/54
[2020-08-06 05:31] VITALS: BP 82/54
--- NOTE | 2020-08-06 05:46 | NUR ---
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 PATIENT THIS NITE HAS BEEN ASYNPTOMATIC OF LOW BLOOD PRESSURE HE DID NOT GET OOB
[2020-08-06 06:20] LABS: BASOPHILS % (AUTO) 0.4 % (0.0-2.0); EOSINOPHILS % (AUTO) 0.2 % (0.0-6.0); HEMATOCRIT 28 % (39-51); HEMOGLOBIN 9.2 g/dL (13.5-17.5); LYMPHOCYTES # (AUTO) 0.9 /CMM (0.8-4.8); LYMPHOCYTES % (AUTO) 32.9 % (20.0-44.0); MEAN CORPUSCULAR HGB CONC 33 g/dl (31.0-36.0); MEAN CORPUSCULAR VOLUME 96 fL (80-96); MONOCYTES # (AUTO) 0.3 /CMM (0.1-1.30); MONOCYTES % (AUTO) 10.9 % (2.0-12.0); NEUTROPHILS # (AUTO) 1.6 /CMM (1.8-8.9); NEUTROPHILS % (AUTO) 55.6 % (43.0-81.0); PLATELET COUNT (AUTO) 234 /CMM (150-450); WHITE BLOOD COUNT (AUTO) 2.9 K/uL (4.3-11.0)
[2020-08-06 06:42] LABS: CALCIUM, SERUM 8.3 mg/dL (8.5-10.1); CREATININE 1.7 mg/dL (0.6-1.3); POTASSIUM 3.7 mmol/L (3.5-5.1)
--- NOTE | 2020-08-06 07:46 | NUR ---
PT RECEIVED IN BED EATING BREAKFAST SOFT DIET, ALERT AND ORIENTED X 2-3. PT IS ON 2L O2 SATURATION 97%. NO RESPIRATORY DISTRESS OR SOB. PT ON MONITOR SHOWING SB 58-60. PT IN BEDREST WITH SKIN INTACT. PT HAS LEFT FORE ARM 22 NOW RUNNING D5 1/2 NS AT 125 ML/HR. BED IN LOCKED LOWEST POSITION, CALL LIGHT WITHIN REACH, ALL SAFETY MEASURES IN PLACE. WILL CONTINUE TO MONITOR CLOSELY
[2020-08-06 08:12] LABS: PTH, INTACT 24 pg/mL (15-65)
[2020-08-06] MEDS: FOLIC ACID 1 MG TABLET PO SCH (09:10)
[2020-08-06] MEDS: PANTOPRAZOLE 40 MG TABLET.DR PO SCH (09:10)
[2020-08-06] MEDS: ASPIRIN EC 81 MG TABLET.DR PO SCH (09:10)
[2020-08-06] MEDS: MULTIVITAMINS,THERAGRAN 1 UDTAB TABLET PO SCH (09:10)
[2020-08-06] MEDS: ENOXAPARIN SODIUM 30 MG/0.3 ML DISP.SYRIN SQ SCH (09:12)
[2020-08-06] MEDS ORDERED: AZITHROMYCIN 250 MG TABLET PO ONE (15:00)
[2020-08-06 15:07] LABS: *SPE A/G RATIO 0.7 (0.7-1.7); *SPE ALBUMIN 2.6 g/dL (2.9-4.4); *SPE ALPHA-1-GLOBULIN 0.4 g/dL (0.0-0.4); *SPE ALPHA-2-GLOBULIN 1.1 g/dL (0.4-1.0); *SPE M-SPIKE Not Observed g/dL (Not Observed); *SPEGAMMA GLOBULIN 1.4 g/dL (0.4-1.8)
[2020-08-06] MEDS: DOCUSATE SODIUM 100 MG CAPSULE PO SCH (18:00)
--- NOTE | 2020-08-06 19:53 | NUR ---
PT REMAINS IN BED, ALERT AND ORIENTED X 3. PT ON MONITOR SHOWING SINUS RHYTHM. PT HIDALGO REMAINS INTACT, PT REMAINS BEDREST WITH SKIN INTACT, MEPILEX APPLIED TO SACRAL AREA THIS SHIFT. IV LEFT FORE ARM 22 RUNNING D5 1/2 NS FOR 125 ML/HR. NO SIGNS OF INFECTION OR INFILTRATION. PATIENT LOW BLOOD PRESSURE ENDORSED TO ONCOMING RN. BED IN LOCKED LOWEST POSITION, CALL LIGHT WITHIN REACH, ALL SAFETY MEASURES IN PLACE. REPORT GIVEN TO ONCOMING RN FOR ANTONIO
[2020-08-06 20:00] VITALS: BP 101/60
--- NOTE | 2020-08-06 20:00 | NUR ---
RN OPENING NOTES PATIENT IN BED, ALERT AND ORIENTED X 2, ON O2 VIA NC AT 2LPM, SATING AT 97 % DENIES ANY SOB DENIES ANY PAIN. COUGH NOTED. HOB ELEVATED. WITH LEFT FA 22G IVF D5 1/2NS RUNNING AT 125ML/HR. NO SIGNS OF INFILTRATION, NO INFECTION NOTED. HIDALGO CATHETER IN PLACE, WITH CLEAR YELLOW URINE OUTPUT. ALL SAFETY MEASURES IMPLEMENTED PER PROTOCOL, SIDE RAILS UP. BED LOCKED IN LOWEST POSITION. CALL LIGHT WITHIN REACH. WILL CONTINUE TO MONITOR.
[2020-08-06] MEDS ORDERED: AZITHROMYCIN 250 MG TABLET ONE (21:24)
[2020-08-06] MEDS: TAMSULOSIN 0.4 MG CAP.SR.24H PO SCH (21:29)
[2020-08-06] MEDS: SENNOSIDES 8.6 MG TABLET PO SCH (21:29)
--- NOTE | 2020-08-06 21:29 | NUR ---
RN NOTE AZITHROMYCIN 500 MG TAB PO GIVEN AT 2129. AM SHIFT WAS NOT ABLE TO ADMINISTER. PER PHARMACY OK TO GIVE ANYTIME. CHARGE NURSE AWARE.
[2020-08-07 04:00] VITALS: BP 104/63
[2020-08-07] MEDS: IV D5/0.45 NACL 1,000 ML IV SCH ×2 (05:57→17:58)
--- NOTE | 2020-08-07 07:20 | NUR ---
RN OPENING NOTES RECEIVED PT IN BED, A/O X 2. ON O2 VIA NC @2LPM, SATING AT @97%. NO SOB. NO PAIN REPORTED AT THIS TIME. COUGH NOTED. HOB ELEVATED. LFA #22 WITH IVF D5 1/2 NS RUNNING @125ML/HR. INFUSING WELL. HIDALGO CATHETER IN PLACE, WITH CLEAR YELLOW URINE OUTPUT. SAFETY MEASURES IMPLEMENTED. CALL LIGHT WITHIN REACH. BED LOCKED AND IN LOWEST POSITION WITH SIDE RAILS UP X2. WILL CONTINUE TO MONITOR.
--- NOTE | 2020-08-07 07:37 | NUR ---
RN CLOSING NOTE PATIENT REMAIN IN BED. ALERT AND ORIENTED X 2, ABLE TO MAKE NEEDS KNOWN. DENIES ANY PAIN AT THIS TIME. NOT IN ANY ACUTE DISTRESS. ON O2 VIA NC AT 2 LMP SATING AT 100% DENIES SOB. CONTINUE ON IVF D5 1/2 NS RUNNING AT 125 ML/HR. NO SIGNS OF INFILTRATION. KEPT CLEAN AND DRY AT ALL TIMES. HIDALGO CATHETER IN PLACE.ALL SAFETY MEASURES IMPLEMENTED PER PROTOCOL, BED LOCKED IN LOWEST POSITION. SIDE RAILS UP. CALL LIGHT WITHIN REACH.WILL ENDORSE TO AM SHIFT FOR ANTONIO.
--- NOTE | 2020-08-07 08:50 | NUR ---
RN NOTES PT TRANSFERRED TO [facility]. REPORT GIVEN TO DELIO HUITRON. PT NOT IN DISTRESS. VS WNL.
--- NOTE | 2020-08-07 09:00 | NUR ---
MS RN NOTE RECEIVED REPORT FROM STACEY HUITRON. PATIENT TRANSFERRED TO ROOM 323-1. PATIENT IN BED RESTING COMFORTABLY. PATIENT IN NO ACUTE DISTRESS. NO SOB NOTED. PATIENT BREATHING IS EVEN AND UNLABORED. PATIENT BED ALARM IS ON. PATIENT SAFETY PRECAUTIONS IN PLACE. PATIENT BED IS LOCKED AND IN LOWEST POSITION. CALL LIGHT WITHIN REACH. WILL CONTINUE TO MONITOR.
[2020-08-07] MEDS: PANTOPRAZOLE 40 MG TABLET.DR PO SCH (09:15)
[2020-08-07] MEDS: ENOXAPARIN SODIUM 30 MG/0.3 ML DISP.SYRIN SQ SCH (09:16)
[2020-08-07] MEDS: FOLIC ACID 1 MG TABLET PO SCH (09:16)
[2020-08-07] MEDS: ASPIRIN EC 81 MG TABLET.DR PO SCH (09:16)
[2020-08-07] MEDS: MULTIVITAMINS,THERAGRAN 1 UDTAB TABLET PO SCH (09:16)
[2020-08-07 09:45] VITALS: BP 120/75
--- NOTE | 2020-08-07 11:20 | NUR ---
MS RN NOTE GAVE REPORT TO SHAINA HUITRON FOR ANTONIO. PATIENT IN NO ACUTE DISTRESS. NO SOB NOTED. PATIENT BREATHING IS EVEN AND UNLABORED. ENDORSED ALL CARE TO SHAINA RN.
[2020-08-07 11:21] LABS: BASOPHILS % (AUTO) 0.3 % (0.0-2.0); EOSINOPHILS % (AUTO) 0.9 % (0.0-6.0); HEMATOCRIT 29 % (39-51); HEMOGLOBIN 9.6 g/dL (13.5-17.5); LYMPHOCYTES # (AUTO) 0.8 /CMM (0.8-4.8); LYMPHOCYTES % (AUTO) 30.2 % (20.0-44.0); MEAN CORPUSCULAR HGB CONC 33 g/dl (31.0-36.0); MEAN CORPUSCULAR VOLUME 96 fL (80-96); MONOCYTES # (AUTO) 0.3 /CMM (0.1-1.30); MONOCYTES % (AUTO) 10.2 % (2.0-12.0); NEUTROPHILS # (AUTO) 1.5 /CMM (1.8-8.9); NEUTROPHILS % (AUTO) 58.4 % (43.0-81.0); PLATELET COUNT (AUTO) 212 /CMM (150-450); RED BLOOD CELL COUNT(AUTO) 3.06 MIL/uL (4.5-6.0); WHITE BLOOD COUNT (AUTO) 2.5 K/uL (4.3-11.0)
--- NOTE | 2020-08-07 11:30 | NUR ---
ms rn received patient and report from robbie,awake,alert,oriented x2 w/ episodes of forgetfulness,chu to gravity,all needs attended.
[2020-08-07 11:58] LABS: CALCIUM, SERUM 8.3 mg/dL (8.5-10.1); CREATININE 1.5 mg/dL (0.6-1.3); POTASSIUM 3.9 mmol/L (3.5-5.1)
[2020-08-07] MEDS ORDERED: AZITHROMYCIN 250 MG TABLET PO SCH (15:00)
--- NOTE | 2020-08-07 16:00 | NUR ---
ms rn due meds given,tolerated well.all needs attended.
[2020-08-07] MEDS: DOCUSATE SODIUM 100 MG CAPSULE PO SCH (17:57)
--- NOTE | 2020-08-07 18:30 | NUR ---
ms rn patient went to assisted living, no distress noted, all needs attended.
== END 2020-08-07 18:34 | DRG 177 ==
LOC: ER 23:44 → TELE1 08-04 08:14 → MEDSG1 08-06 14:57 → MED 08-07 08:11
PROVIDERS: ADMIT Legal Medicine; ATTEND Legal Medicine
DX: J69.0 Pneumonitis due to inhalation of food and vomit (principal); N17.0 Acute kidney failure with tubular necrosis; G93.41 Metabolic encephalopathy; E43 Unspecified severe protein-calorie malnutrition; I13.0 Hypertensive heart and chronic kidney disease with heart failure and stage 1 through stage 4 chronic kidney disease, or unspecified chronic kidney disease; I69.354 Hemiplegia and hemiparesis following cerebral infarction affecting left non-dominant side; E87.0 Hyperosmolality and hypernatremia; E86.0 Dehydration; F03.90 Unspecified dementia, unspecified severity, without behavioral disturbance, psychotic disturbance, mood disturbance, and anxiety; N18.9 Chronic kidney disease, unspecified; Z20.828 Contact with and (suspected) exposure to other viral communicable diseases; E11.51 Type 2 diabetes mellitus with diabetic peripheral angiopathy without gangrene; E11.22 Type 2 diabetes mellitus with diabetic chronic kidney disease; I25.10 Atherosclerotic heart disease of native coronary artery without angina pectoris; N40.1 Benign prostatic hyperplasia with lower urinary tract symptoms; R33.8 Other retention of urine; Z88.1 Allergy status to other antibiotic agents; Z88.5 Allergy status to narcotic agent; Z79.899 Other long term (current) drug therapy; Z79.01 Long term (current) use of anticoagulants; I50.9 Heart failure, unspecified; D64.9 Anemia, unspecified
CPT/HCPCS: 36415; 71045-TC; 76770-TC; 80048-TC; 80053-TC; 82550-TC; 82728-TC; 83605-TC; 83615-TC; 83735-TC; 83970; 84100-TC; 84155; 84165; 84484-TC; 85025-TC; 85378-TC; 86140-TC; 87040-TC; 87081-TC; C9803; G0378; J0456; J1650; J3475; J3490; J7030; J7050; J7060; U0003